=== PATIENT | female | born 1975 | race Caucasian/White ===

== ENCOUNTER 2017-03-17 17:30 | Inpatient (IN) | payer SELFPAY ==
[2017-03-17] VITALS (7 sets, daily range): BP systolic 114–129; BP diastolic 60–101
[~2017-03-17] VITALS: Ht 175.3 cm; Wt 101.7 kg
--- NOTE | ~2017-03-17 | PR ---
[place], [place] PROGRESS NOTE NAME: [id number] UNIT #: [id number] ROOM: 416 DOCTOR: SHIRLEY ESTRADA MD,MAXINE BIRTHDATE: [birth year] DOS: 03/19/2017 PULMONARY PROGRESS NOTE SUBJECTIVE: She has been still not feeling well, continue antibiotics previously as Levaquin. She has been noted with coughing with increased chest congestion and complaining of tightness in the chest. Denies any symptoms of nausea, vomiting, diarrhea or any abdominal pain. OBJECTIVE: VITAL SIGNS: For the patient which were recorded showed the temperature of the patient noted as normal. The respiratory rate of the patient recorded as 20, heart rate of 99, blood pressure 160/64. HEENT: Examination shows no acute change. NECK: Supple. Head was atraumatic. CARDIOVASCULAR: S1, S2 is audible. LUNGS: The patient was noted without any wheezing or crackles at the present time. ABDOMEN: Soft, nontender. LABORATORY DATA: CBC of the patient that was done this morning showed WBC count 16.3, hemoglobin 10.5, hematocrit 37.8, platelet count 187,000. Lactic acid was noted this morning as 2.2. The INR for the patient noted as 3.3. The blood culture of the patient from 03/17/2017 showed no bacterial growth. The chest x-ray of the patient that was done this morning showed persistent infiltration in the right mid lung. IMPRESSION: 1. Acute pneumonia for the patient, which has been not noted responding to current treatment, severe coughing, acute exacerbation of bronchial asthma as well. In the chest auscultation changes, moderate decreased breath sounds are noted with expiratory wheezing without any crackles. Continue further impression. 2. Chronic mild to moderate obesity. PLAN OF TREATMENT: The patient's antibiotics will be changed to better gram-negative and gram-positive coverage. Obtain the blood culture for this patient as well. The bronchoscopy planned to be done in the morning. The risks and benefits of procedure have been discussed with the patient. The Coumadin of the patient will be discontinued at this time with mild dose of vitamin K given to reduce the INR for the patient to do the bronchoscopy safely. The Coumadin will be resumed tomorrow morning for the patient as well. Continue current dose of steroids. Other supportive therapy, plan of management as well. Usual care. Further treatment changes will be done based on the progression of the illness. [place], [place] PROGRESS NOTE NAME: SHERITA PATEL UNIT #: [id number] ROOM: [facility] DOCTOR: MAXINE ENRIQUEZ MD BIRTHDATE: [birth year] MAXINE WATSON MD CM:PRAMOD [phone] MAXINE ESTRADA MD 03/20/17120 interface
--- NOTE | ~2017-03-17 | PR ---
[place], [place] PROGRESS NOTE NAME: SHERITA PATEL UNIT #: [id number] ROOM: 416 DOCTOR: SHIRLEY ESTRADA MD,MAXINE BIRTHDATE: [birth year] DOS: 03/23/2017 SUBJECTIVE: She has been still noted with coughing, but the intensity and frequency has been gradually resolving, but not completely resolved. The patient was noted symptoms of chest pain because of the cough, which has been treated with the local pain management. OBJECTIVE: VITAL SIGNS: Normal temperature, respiratory rate 20, heart rate 90, blood pressure 146/78. The pulse oxygen saturation of the patient recorded as 98% saturation on 1 liter nasal cannula. HEENT: Chronic obesity. NECK: Supple. CARDIOVASCULAR SYSTEM: S1, S2 audible. LUNGS: Noted without any wheeze or crackles. ABDOMEN: Soft, nontender. LABORATORY DATA: INR today was noticed 2.0, which is in the therapeutic range. CBC this morning, WBC count 16.7, hemoglobin 10.8, hematocrit 33.7. Platelet count 316,000. IMPRESSION: 1. Progressive resolution of acute pneumonia as well as coughing with exacerbation of bronchial asthma as well. 2. Chronic moderate obesity. 3. History of past thromboembolism current anticoagulation noted therapeutic INR. PLAN OF TREATMENT: Consider discharge the patient in the home setting for this patient with tapering dose of prednisone, oral Zithromax the patient 500 mg p.o. daily for 10 days and short acting bronchodilators. Outpatient followup was suggested for the patient post-discharge. MAXINE WATSON MD CM:PNTRANS [id number] MAXINE ESTRADA MD 03/23/172013 interface
--- NOTE | ~2017-03-17 | CON ---
[place], [place] REPORT OF CONSULTATION NAME: SHERITA PATEL UNIT #: [id number] ROOM: 416 DOCTOR: SHIRLEY ESTRADA MDMAXINE BIRTHDATE: [birth year] DOS: 03/18/2017 PULMONARY CONSULTATION EVALUATION MANAGEMENT REASON FOR CONSULTATION: For assessment of current abnormal ongoing respiratory symptoms, possible pneumonia and other issues. HISTORY OF PRESENT ILLNESS: This is a 41-year-old white female who has been known to me from her previous hospitalization. The patient was admitted in this hospital and treated because of acute hypoxic respiratory failure with exacerbation of bronchial asthma as well. The patient remained in the hospital from 12/03/2016 and discharged on 12/13/2016. The patient stated that she has been noted with symptoms of sore throat over the last week. The sore throat for the patient has been noted with significant worsening. She was seen in the Emergency Room of [facility]. Prescribed some medications, but the symptoms have not resolved, noted with further worsening. Later on, she was noted with coughing, which is noted progressive with excessive chest congestion. She was also noticed with symptoms of shortness breath. There were no symptoms of hemoptysis. She was complaining of fatigue, tiredness and weakness. The patient came into the Emergency Room and required hospitalization in this hospital, treated for presumable pneumonia and other issues. REVIEW OF SYSTEMS: CONSTITUTIONAL SYMPTOMS: She does have symptoms of fatigue and tiredness with possible fever, but there were no chills. EYES: Denies any burning, redness, or tenderness. EAR, NOSE, THROAT: Sore throat of the patient has been resolving, but not completely gone. She denies any symptoms of epistaxis as well. CARDIOVASCULAR: Denies anginal pain, edema or pain of the lower extremities. GASTROINTESTINAL: Denies dysphagia, nausea, vomiting, diarrhea, abdominal pain, hematemesis, melena, or hematochezia. MUSCULOSKELETAL: Denies acute joint pain, redness, or tenderness. SKIN: Denies any lesions or rashes. GENITOURINARY: Denies dysuria, suprapubic pain, or hematuria. CENTRAL NERVOUS SYSTEM: Denies dizziness, headache, diplopia or seizures. Remaining systems for this patient were noted to be unremarkable. PAST MEDICAL HISTORY: Noted with: 1. History of uncomplicated bronchial asthma. 2. Past history of pneumonia, treated in 11/2016. 3. Acute respiratory failure of the patient, noted progressive requiring intubation and mechanical ventilation in 11/2016. 4. Severe muscular weakness of the patient secondary to acute critical illness, resolved markedly. 5. History of depression. 6. Irritable bowel syndrome. 7. Migrainous headache. 8. Past history of pulmonary embolism. [place], [place] REPORT OF CONSULTATION NAME: SHERITA PATEL UNIT #: [id number] ROOM: [facility] DOCTOR: MAXINE ENRIQUEZ MD BIRTHDATE: [birth year] PAST SURGICAL HISTORY: 1. Cholecystectomy. 2. Hysterectomy. SOCIAL HISTORY: The patient denies any history of alcohol use or any tobacco use at this time. She has smoked cigarettes in the past. FAMILY HISTORY: Reported for renal failure. MEDICATIONS: Current administered medications noted use of: 1. Coumadin 6 mg p.o. daily. 2. Vitamin D 1000 international units daily. 3. Solu-Medrol 40 mg every 8 hours. 4. Tessalon Perles 200 mg t.i.d. p.r.n. for cough. 5. Mucinex 1200 mg p.o. b.i.d. 6. DuoNeb for this patient every 4 hours. 7. Levaquin 750 mg IV daily. Other p.r.n. medication for symptoms of the patient were also noted in progress. DRUG ALLERGY HISTORY: Reported as allergy to: 1. PENICILLIN. 2. IVP DYE. 3. IBUPROFEN. PHYSICAL EXAMINATION: GENERAL: A 41-year-old female who has been currently resting comfortably on the bed without any distress. Height of 5 feet 9 inches, weight of 224 pounds, BMI 33.1. VITAL SIGNS: Normal temperature, respiratory rate of 20-22, heart rate of 95-128, blood pressure 122/101-112/55. Intake for the patient is 2800 mL, output 700 mL, pulse oxygen saturation on room air 97% saturation. HEENT: Mild to moderate obesity. Head was atraumatic. Eyes nonicterus. NECK: Supple. CARDIOVASCULAR: S1, S2 is audible. LUNGS: The patient was noted without any wheezing or crackles at the present time. Breath sounds are noted mild to moderately decreased bilaterally. ABDOMEN: Bowel sounds are present. Mild to moderate obesity was noted. EXTREMITIES: Show no edema, clubbing, cyanosis. CENTRAL NERVOUS SYSTEM: Cranial nerves 2-12 intact. MUSCULOSKELETAL: No deformities. SKIN: Showed no lesions or rashes. LABORATORY DATA: CBC of patient 03/17/2017, WBC count 18.5, hemoglobin and hematocrit were normal. Platelet count was normal on admission yesterday. Lactic acid 4.1 on admission, subsequent lactic acid noted decreased to 3.1 for this patient yesterday. CMP of the patient that was done yesterday showed BUN 17, creatinine was 1.05, glucose 127. Remaining CMP was normal. PT/INR for the patient yesterday was done was noted therapeutic at 2.6. CK and MB, troponin of the patient yesterday and this morning were normal. CBC this morning, WBC count [place], [place] REPORT OF CONSULTATION NAME: SHERITA PATEL UNIT #: [id number] ROOM: [facility] DOCTOR: SHIRLEY ESTRADA MD,[facility] BIRTHDATE: [birth year] 13.3, hemoglobin 11, hematocrit 33.7, platelet count 296,000. INR for patient noted 2.6, which is therapeutic as well. CMP this morning, BUN and creatinine was normal. The chest x-ray of the patient, 2-view, which was done yesterday was personally reviewed, shows questionable infiltration was noted in the right mid lung for the patient and the left lung base. There was no large consolidation visible. IMPRESSION: 1. The patient who has been currently admitted to the hospital, appears to have acute exacerbation of bronchial asthma associated possible infection in the lungs for the patient with bilateral small pneumonia cannot be completely excluded. Etiology could be considered viral in nature and/or bacterial as well. 2. History of chronic anticoagulation with history of bilateral pulmonary embolism as well. 3. Chronic mild to moderate obesity as well. PLAN OF TREATMENT: The patient's dose of the Solu-Medrol which has been given at high dose will be decreased to 60 mg b.i.d. today with further reduction done for the patient based on the improvement in the symptoms. The sputum for Gram stain culture has been ordered for this patient as well. A new chest x-ray will be obtained for the patient in the morning to reassess the current progression of the pulmonary infiltration. Continuation of the bronchodilators administration for the patient as well. Further treatment therapy, plan of management as well. Usual care. Monitor respiratory status of the patient closely. Further changes to be ordered and done for the patient based on the progression of the current illness. Continue anticoagulation for patient to maintain therapeutic INR. MAXINE WATSON MD CM:CONSTR:REPORT OF CONSULTATION 1245 03/19/17 0546 interface
--- NOTE | ~2017-03-17 | PR ---
[place], [place] PROGRESS NOTE NAME: SHERITA PATEL UNIT #: [id number] ROOM: 416 DOCTOR: SHIRLEY ESTRADA MD,MAXINE BIRTHDATE: [birth year] DOS: 03/20/2017 SUBJECTIVE: She has been still noted with severe coughing, noted generalized weakness and fatigue. Denies symptoms of chest pain. She has been noted n.p.o. past midnight for bronchoscopy. Small dose of oral vitamin K for this patient was given yesterday to have the bronchoscopy done. The patient's INR was noticed as 1.6 this morning. OBJECTIVE: VITAL SIGNS: For the patient, which was recorded showed the temperature noted normal, respiratory rate 18, heart rate 75, blood pressure 113/60-138/86. The pulse oxygen saturation of the patient on 2 liters nasal cannula 98% saturation. HEENT: Chronic obesity. NECK: Supple. CARDIOVASCULAR: S1, S2 audible. LUNGS: Moderately reduced breath sounds noted in the lungs bilaterally with scattered expiratory crackles and wheezing. ABDOMEN: Soft, nontender, and obese. LABORATORY DATA: INR today was noted at 1.6. CBC this morning, WBC count 11.8, hemoglobin 10.5, hematocrit 32.7, platelet count of 281,000. IMPRESSION: The patient with ongoing acute pneumonia for this patient, which is being currently treated with broad-spectrum intravenous antibiotics empirically with severe coughing, exacerbation of bronchial asthma, was also suspected. for bronchoscopy. PLAN OF TREATMENT: Proceed with the bronchoscopy for the patient at this time. No major changes in treatment will be necessary. Any modification of treatment or change of treatment for the patient will be ordered after the bronchoscopy assessment of the airways. Usual plan of treatment and other therapies. MAXINE WATSON MD CM:PNTRANS [id number] MAXINE ESTRADA MD 03/21/17 0609 interface
--- NOTE | ~2017-03-17 | PROC NOTE ---
[place], [place] PROCEDURE NOTE NAME: SHERITA PATEL UNIT #: [id number] ROOM: 416 DOCTOR: SHIRLEY ESTRADA MD,MAXINE BIRTHDATE: [birth year] DOS: 03/20/2017 PREOPERATIVE DIAGNOSES: Persistent severe cough with pulmonary infiltration, nonresolving with current maximum medical therapy. POSTOPERATIVE DIAGNOSES: Severe tracheobronchitis of the patient and rule out pneumonia. PROCEDURE DESCRIPTION: Informed consent obtained for the patient. The patient brought to the OR and placed in supine position. Conscious sedation administered by the Anesthesia Department. After achieving appropriate sedation, airway introduced into the mouth. Bronchoscope advanced into the airway into laryngeal area. Epiglottis and vocal cords were seen. Vocal cord noted yellowish in color, moving symmetrically with movements. A 2% lidocaine mixed with 20 mL of saline, total of 10 mL of lidocaine was sprayed over the vocal cord partially in the tracheal lumen, right and left main stem bronchi to reduce excessive severe coughing. The vocal cord noted yellowish in color. Bronchoscope advanced to the vocal cord and tracheal lumen. Tracheal lumen shows small amount of secretions suctioned out. Marie noted sharp. Right upper, right middle, right lower, left upper, lingula, and lower lobe bronchi were all examined. Scattered amount of secretions present, small amount for the patient with findings acute tracheobronchitis noted. The bronchial washing was taken from the endobronchial tree bilaterally, sent for the appropriate cultures. Procedure well tolerated by the patient without any difficulty. Postoperative findings were rather partially discussed with the patient after completion of the procedure. No family members available at this time to discuss the current findings. MAXINE WATSON MD CM:PROCNOTE:PROCEDURE NOTE [id number] MAXINE ESTRADA MD
--- NOTE | ~2017-03-17 | PR ---
[place], [place] PROGRESS NOTE NAME: SHERITA PATEL UNIT #: [id number] ROOM: 416 DOCTOR: MAXINE ENRIQUEZ MD BIRTHDATE: [birth year] DOS: 03/21/2017 PULMONARY FOLLOWUP NOTE SUBJECTIVE: She has a bronchoscopy done yesterday with reduction of the respiratory complaints were noted. She was continued with antibiotics for the patient's vancomycin as well as IV Azactam. The patient was resumed her anticoagulation yesterday as well as after the bronchoscopy. Denies symptoms of acute chest pain. OBJECTIVE: VITAL SIGNS: For the patient which were recorded showed normal temperature, respiratory rate 20, heart rate 90, blood pressure 108/54. The pulse oxygen saturation for the patient recorded as 92% saturation on nasal cannula. HEENT: Examination showed no acute change. NECK: Supple. CARDIOVASCULAR SYSTEM: S1, S2 audible. LUNGS: The patient was noted without any wheeze or crackles at the present time. ABDOMEN: Soft, nontender. LABORATORY DATA: The Gram stain of the bronchial washing shows moderate white blood cells, few gram-positive cocci in pairs and budding yeast. The BMP of the patient this morning, glucose 137, BUN and creatinine was normal. CBC this morning, WBC count 13.4, hemoglobin 10.8, hematocrit 33.9 with platelet count 182,000. IMPRESSION: 1. Severe acute tracheobronchitis with exacerbation of bronchial asthma as well. 2. Acute pneumonia for the patient was also noted as well in the right lower lobe. PLAN OF TREATMENT: Obtain the chest x-ray of the patient this morning to reassess the pneumonia progression. Monitor culture results. No changes in the antibiotics of the patient at this time will be necessary. Any treatment changes for the patient if necessary will be done after the final culture results of the bronchial washings. Dose of Solu-Medrol for the patient will be kept as previously. [place], [place] PROGRESS NOTE NAME: SHERITA PATEL UNIT #: [id number] ROOM: 416 DOCTOR: MAXINE ENRIQUEZ MD BIRTHDATE: [birth year] MAXINE WATSON MD CM:PNTRANS [id number] MAXINE ESTRADA MD 03/22/17 0439 interface
--- NOTE | ~2017-03-17 | PR ---
[place], [place] PROGRESS NOTE NAME: SHERITA PATEL UNIT #: [id number] ROOM: 416 DOCTOR: MAXINE ENRIQUEZ MD BIRTHDATE: [birth year] DOS: 03/22/2017 PULMONARY PROGRESS NOTE SUBJECTIVE: The coughing of the patient has been still noted nonproductive, gradual reduction. Shortness of breath of the patient has been noted to be decreasing. Wheezing was resolved. OBJECTIVE: VITAL SIGNS: Normal temperature, respiratory rate 18, heart rate 76, blood pressure 108/78. Pulse oxygen saturation of the patient recorded on 2 liters via nasal cannula 93% saturation. HEENT: Head was atraumatic. Eyes nonicterus. NECK: Supple. CARDIOVASCULAR SYSTEM: S1, S2 audible. LUNGS: The patient was noted without any crackles. Scattered occasional wheezing was present. ABDOMEN: Soft, nontender. LABORATORY DATA: Culture of the bronchial washing was noted normal brian. CMP this morning noted normal BUN and creatinine. Chest x-ray, 2-view, which was done this morning shows improvement in the aeration of the lungs for the patient noted resolving acute pneumonia. IMPRESSION: The patient who has been currently noted with acute exacerbation of bronchial asthma with acute tracheobronchitis as well as acute pneumonia, right lower lobe for this patient. Severe cough for this patient, irritability of airway was still noted. PLAN OF TREATMENT: The patient will be continued on bronchodilators, oxygen supplementation and the other medical management except changes will be made in the medications as resuming the patient's Zithromax for the patient orally 500 mg daily and the use of the IV Rocephin, all the other antibiotics will be discontinued based on the culture results. [place], [place] PROGRESS NOTE NAME: SHERITA PATEL UNIT #: [id number] ROOM: 416 DOCTOR: MAXINE ENRIQUEZ MD BIRTHDATE: [birth year] MAXINE WATSON MD CM:PNTRANS [phone] MAXINE ESTRADA MD 03/22/174 interface
[~2017-03-17 17:30] MED LIST: ALBUTEROL0.09 MG/A2 INH; ALBUTEROL2.5 MG/0.5 NEB; ARNUITY EL200 MCG/Ac INH; BENADRYL25 MG PO; BENZONATATE100 M1 PO; CLARITIN10 MG PO; Coumadin5 MG PO; D-1000 185 MG-11 TAB NG; DOXYCYCLINE100 M3 PO; DUONEB 3 MG/3 ML3 M1 PO; EPI EZ PEN1 MG/ML IM; EPI-PEN1 MG/ML MR; EPIPEN 2-PAK1 MG/ML MR; LASIX40 MG PO; LEVAQUIN750 MG PO; LEVOFLOXACIN500 MG PO; MEDROL DOSEPAK4 MG PO; NABUMETONE500 M1 PO; PREDNICOT20 MG PO; PREDNISONE10 MG PO; PREDNISONE20 MG PO; PROTONIX20 MG PO; PROTONIX40 MG PO; ROBITUSSIN5 ML PO; SPIRIVA18 MCG INH; VISTARIL25 MG PO; ZANTAC150 MG; ZOLOFT50 MG PO
[2017-03-17 18:18] LABS: BASO % 0.1 % (0.0-1.0); HEMATOCRIT 38.8 % (37.0-47.0); HEMOGLOBIN 12.7 g/dl (12.0-16.0); IG # 0.1 10*3/uL (0.0-0.1); LYMPH # 2.3 10*3/uL (1.3-4.4); LYMPH % 12.4 % (27.0-41.0); MEAN CORPUSCULAR HGB 28.2 pg (27.0-31.0); MEAN CORPUSCULAR HGB CONC 32.7 g/dl (33.0-37.0); MEAN PLATELET VOLUME 10.2 fl (9.6-12.3); MONO # 0.5 10*3/uL (0.1-1.0); MONO % 2.5 % (3.0-9.0); NEUT # 15.7 10*3/uL (2.3-7.9); NEUT % 84.4 % (47.0-73.0); PLATELET COUNT AUTOMATED 364 10*3/uL (130-400); RED BLOOD COUNT 4.51 10*6/uL (4.10-5.10); RED CELL DISTRI WIDTH 13.8 % (0-14.5); WHITE BLOOD COUNT 18.5 10*3/uL (4.8-10.8)
[2017-03-17 18:35] LABS: ALBUMIN 3.7 gm/dl (3.1-4.5); ALKALINE PHOSPHATASE 96 U/L (45-117); BILIRUBIN, TOTAL 0.3 mg/dl (0.2-1.0); BUN 7 mg/dl (7-24); CARBON DIOXIDE 23 mmol/L (21-32); CHLORIDE 109 mmol/L (98-107); EST GLOM FILT AFRICAN AMERICAN > 60 ml/min; GLUCOSE 127 mg/dL (65-99); POTASSIUM 4.1 mmol/L (3.5-5.1); SGOT/AST 27 IU/L (3-35); SGPT/ALT 29 U/L (12-78); SODIUM 143 mmol/L (136-145); TOTAL PROTEIN 7.9 gm/dL (6.4-8.2)
[2017-03-17 18:39] LABS: TROPONIN I < 0.015 ng/ml (<0.045)
[2017-03-17 20:14] LABS: LA>2 REFLEX 2 HR DRAW NOW
[2017-03-17 20:32] LABS: LA>2 RFLX FOLLOW UP AT 2 HRS 3.9 mmol/L (0.4-2.0)
[2017-03-17] MEDS ORDERED: COUMADIN6 M2 PO (21:54)
[2017-03-17] MEDS ORDERED: DUONEB 3 MG/3 ML3 M1 INH (21:55)
[2017-03-17] MEDS ORDERED: VENTOLIN H0.09 MG/AC INH (21:56)
[2017-03-17 22:22] LABS: LA>2 REFLEX 4 HR DRAW NOW
[2017-03-17 23:13] LABS: INTERNATIONAL NORM RATIO 2.6 (2.0-3.5); PROTHROMBIN TIME 28.8 SECONDS (9.0-12.4)
[2017-03-18] VITALS: BP 112/55
[2017-03-18 00:48] LABS: BILIRUBIN NEGATIVE (NEGATIVE); BLOOD NEGATIVE (NEGATIVE); CLARITY CLEAR (CLEAR); COLOR YELLOW (YELLOW); GLUCOSE NEGATIVE (NEGATIVE); KETONE NEGATIVE (NEGATIVE); LEUKO ESTERASE NEGATIVE (NEGATIVE); NITRITE NEGATIVE (NEGATIVE); PROTEIN NEGATIVE (NEGATIVE); SPECIFIC GRAVITY <= 1.005 (1.005-1.030); UROBILINOGEN 0.2 E.U./dl (0.2-1.0)
[2017-03-18 00:52] LABS: CKMB 1.2 ng/ml (0.5-3.6); CPK 143 U/L (26-192); TROPONIN I < 0.015 ng/ml (<0.045)
[2017-03-18 01:38] LABS: BACTERIA TRACE; EPITHELIAL CELLS 30-35; URINE REFLEX COMMENT NO (NO); WBC 0-2 wbc/hpf (0-5)
[2017-03-18 06:21] LABS: BASO % 0.1 % (0.0-1.0); HEMATOCRIT 33.7 % (37.0-47.0); IG # 0.1 10*3/uL (0.0-0.1); LYMPH # 1.3 10*3/uL (1.3-4.4); MEAN CELL VOLUME 87.1 fl (81.0-99.0); MEAN CORPUSCULAR HGB 28.4 pg (27.0-31.0); MEAN CORPUSCULAR HGB CONC 32.6 g/dl (33.0-37.0); MEAN PLATELET VOLUME 10.1 fl (9.6-12.3); MONO # 0.2 10*3/uL (0.1-1.0); MONO % 1.4 % (3.0-9.0); NEUT # 11.7 10*3/uL (2.3-7.9); NEUT % 87.9 % (47.0-73.0); PLATELET COUNT AUTOMATED 296 10*3/uL (130-400); RED BLOOD COUNT 3.87 10*6/uL (4.10-5.10); WHITE BLOOD COUNT 13.3 10*3/uL (4.8-10.8)
[2017-03-18 06:27] LABS: CKMB 1.3 ng/ml (0.5-3.6); CPK 116 U/L (26-192)
[2017-03-18 06:50] LABS: ALBUMIN 3.1 gm/dl (3.1-4.5); ALKALINE PHOSPHATASE 78 U/L (45-117); BILIRUBIN, TOTAL 0.3 mg/dl (0.2-1.0); BUN 9 mg/dl (7-24); CARBON DIOXIDE 25 mmol/L (21-32); CHLORIDE 109 mmol/L (98-107); CHOLESTEROL 186 mg/dL (<200); EST GLOM FILT AFRICAN AMERICAN > 60 ml/min; FREE T4 1.09 ng/dl (0.76-1.46); GLUCOSE 128 mg/dL (65-99); HDL CHOLESTEROL 58 mg/dl (40-60); LDL CHOLESTEROL 106 mg/dL (9-159); MAGNESIUM 2.5 mg/dL (1.5-2.1); PHOSPHOROUS 3.3 mg/dL (2.5-4.9); POTASSIUM 3.9 mmol/L (3.5-5.1); SGOT/AST 14 IU/L (3-35); SGPT/ALT 24 U/L (12-78); SODIUM 143 mmol/L (136-145); TOTAL PROTEIN 6.7 gm/dL (6.4-8.2); TRIGLYCERIDES 110 mg/dl (<150); VLDL CHOLESTEROL 22 mg/dL (6-40)
[2017-03-18 06:54] LABS: THYROID STIM HORMONE (HS) 0.125 uIU/ml (0.358-4.75)
[2017-03-18 07:01] LABS: INTERNATIONAL NORM RATIO 2.6 (2.0-3.5); PROTHROMBIN TIME 29.6 SECONDS (9.0-12.4)
[2017-03-18 07:03] LABS: TROPONIN I < 0.015 ng/ml (<0.045)
[2017-03-18 07:32] LABS: HEMOGLOBIN A1c 5.8 % (4.8-5.6)
[2017-03-18 08:00] VITALS: BP 113/56
[2017-03-18 09:14] LABS: VITAMIN D, 25-HYDROXY 26.4 ng/mL (30-100)
[2017-03-18 09:15] LABS: FOLIC ACID 5.7 ng/mL (>5.38)
[2017-03-18 12:00] VITALS: BP 126/66
[2017-03-18 16:00] VITALS: BP 106/61
[2017-03-18 20:00] VITALS: BP 123/75
[2017-03-19] VITALS: BP 98/75
[2017-03-19 06:12] LABS: BASO % 0.1 % (0.0-1.0); HEMATOCRIT 32.8 % (37.0-47.0); HEMOGLOBIN 10.5 g/dl (12.0-16.0); IG # 0.2 10*3/uL (0.0-0.1); LYMPH # 1.5 10*3/uL (1.3-4.4); MEAN CELL VOLUME 87.9 fl (81.0-99.0); MEAN CORPUSCULAR HGB 28.2 pg (27.0-31.0); MEAN PLATELET VOLUME 10.1 fl (9.6-12.3); MONO # 0.5 10*3/uL (0.1-1.0); MONO % 3.1 % (3.0-9.0); NEUT # 14.1 10*3/uL (2.3-7.9); NEUT % 86.8 % (47.0-73.0); PLATELET COUNT AUTOMATED 287 10*3/uL (130-400); RED BLOOD COUNT 3.73 10*6/uL (4.10-5.10); RED CELL DISTRI WIDTH 14.1 % (0-14.5); WHITE BLOOD COUNT 16.3 10*3/uL (4.8-10.8)
[2017-03-19 06:30] LABS: INTERNATIONAL NORM RATIO 3.1 (2.0-3.5); PROTHROMBIN TIME 35.9 SECONDS (9.0-12.4)
[2017-03-19 07:54] LABS: LA>2 REFLEX 2 HR DRAW NOW
[2017-03-19 08:00] VITALS: BP 116/64
[2017-03-19 10:12] LABS: LA>2 REFLEX 4 HR DRAW NOW
[2017-03-19 12:00] VITALS: BP 109/54
[2017-03-19 16:00] VITALS: BP 107/73
[2017-03-19 20:00] VITALS: BP 109/78
[2017-03-20] VITALS (9 sets, daily range): BP systolic 91–138; BP diastolic 52–86
[2017-03-20 06:44] LABS: INTERNATIONAL NORM RATIO 1.6 (2.0-3.5); PROTHROMBIN TIME 17.4 SECONDS (9.0-12.4)
[2017-03-20 06:51] LABS: BASO % 0.1 % (0.0-1.0); HEMATOCRIT 32.7 % (37.0-47.0); HEMOGLOBIN 10.5 g/dl (12.0-16.0); IG # 0.2 10*3/uL (0.0-0.1); LYMPH # 1.4 10*3/uL (1.3-4.4); LYMPH % 11.9 % (27.0-41.0); MEAN CELL VOLUME 88.6 fl (81.0-99.0); MEAN CORPUSCULAR HGB 28.5 pg (27.0-31.0); MEAN CORPUSCULAR HGB CONC 32.1 g/dl (33.0-37.0); MEAN PLATELET VOLUME 9.9 fl (9.6-12.3); MONO # 0.4 10*3/uL (0.1-1.0); MONO % 3.5 % (3.0-9.0); NEUT # 9.8 10*3/uL (2.3-7.9); NEUT % 82.9 % (47.0-73.0); PLATELET COUNT AUTOMATED 281 10*3/uL (130-400); RED BLOOD COUNT 3.69 10*6/uL (4.10-5.10); RED CELL DISTRI WIDTH 13.9 % (0-14.5); WHITE BLOOD COUNT 11.8 10*3/uL (4.8-10.8)
[2017-03-21] VITALS: BP 104/57
[2017-03-21 00:09] LABS: INFLUENZA B Negative (Negative); METAPNEUMOVIRUS Negative (Negative)
[2017-03-21 06:07] LABS: BASO % 0.1 % (0.0-1.0); HEMATOCRIT 33.9 % (37.0-47.0); HEMOGLOBIN 10.8 g/dl (12.0-16.0); IG # 0.3 10*3/uL (0.0-0.1); LYMPH # 1.6 10*3/uL (1.3-4.4); LYMPH % 11.6 % (27.0-41.0); MEAN CELL VOLUME 89.7 fl (81.0-99.0); MEAN CORPUSCULAR HGB 28.6 pg (27.0-31.0); MEAN CORPUSCULAR HGB CONC 31.9 g/dl (33.0-37.0); MEAN PLATELET VOLUME 9.8 fl (9.6-12.3); MONO # 0.5 10*3/uL (0.1-1.0); MONO % 3.9 % (3.0-9.0); NEUT % 82.2 % (47.0-73.0); NUCLEATED RED BLOOD CELL 0.1 % (0.0-0.0); PLATELET COUNT AUTOMATED 302 10*3/uL (130-400); RED BLOOD COUNT 3.78 10*6/uL (4.10-5.10); RED CELL DISTRI WIDTH 13.9 % (0-14.5); WHITE BLOOD COUNT 13.4 10*3/uL (4.8-10.8)
[2017-03-21 06:24] LABS: BUN 14 mg/dl (7-24); CARBON DIOXIDE 30 mmol/L (21-32); CHLORIDE 109 mmol/L (98-107); EST GLOM FILT AFRICAN AMERICAN > 60 ml/min; GLUCOSE 137 mg/dL (65-99); POTASSIUM 3.7 mmol/L (3.5-5.1); SODIUM 144 mmol/L (136-145)
[2017-03-21 08:00] VITALS: BP 122/64
[2017-03-21 12:00] VITALS: BP 108/54
[2017-03-21 14:00] VITALS: BP 108/54
[2017-03-21 15:07] LABS: ACID FAST SPEC PROCESSING Concentration (.)
[2017-03-21 16:00] VITALS: BP 108/72
[2017-03-21 20:00] VITALS: BP 129/70
[2017-03-22] VITALS: BP 124/70
[2017-03-22 06:32] LABS: ALBUMIN 2.4 gm/dl (3.1-4.5); ALKALINE PHOSPHATASE 66 U/L (45-117); BILIRUBIN, TOTAL 0.2 mg/dl (0.2-1.0); BUN 17 mg/dl (7-24); CARBON DIOXIDE 24 mmol/L (21-32); CHLORIDE 109 mmol/L (98-107); EST GLOM FILT AFRICAN AMERICAN > 60 ml/min; GLUCOSE 122 mg/dL (65-99); POTASSIUM 3.9 mmol/L (3.5-5.1); SGOT/AST 16 IU/L (3-35); SGPT/ALT 31 U/L (12-78); SODIUM 145 mmol/L (136-145); TOTAL PROTEIN 5.5 gm/dL (6.4-8.2)
[2017-03-22 07:00] LABS: INTERNATIONAL NORM RATIO 1.7 (2.0-3.5); PROTHROMBIN TIME 18.2 SECONDS (9.0-12.4)
[2017-03-22 08:00] VITALS: BP 108/78
[2017-03-22 12:00] VITALS: BP 118/62
[2017-03-22 16:00] VITALS: BP 130/62
[2017-03-22 20:00] VITALS: BP 120/85
[2017-03-23] VITALS: BP 110/60
[2017-03-23 06:43] LABS: HEMATOCRIT 33.7 % (37.0-47.0); HEMOGLOBIN 10.8 g/dl (12.0-16.0); MEAN CELL VOLUME 87.8 fl (81.0-99.0); MEAN CORPUSCULAR HGB 28.1 pg (27.0-31.0); MEAN PLATELET VOLUME 9.7 fl (9.6-12.3); PLATELET COUNT AUTOMATED 316 10*3/uL (130-400); RED BLOOD COUNT 3.84 10*6/uL (4.10-5.10); RED CELL DISTRI WIDTH 13.7 % (0-14.5); WHITE BLOOD COUNT 16.7 10*3/uL (4.8-10.8)
[2017-03-23 07:12] LABS: LYMPHOCYTE # 2.2 10*3/uL (1.3-4.4); METAMYELOCYTES 2 % (0-0); MONOCYTE # 0.5 10*3/uL (0.1-1.0); NEUTROPHIL # 13.7 10*3/uL (2.3-7.9); NEUTROPHILS 82 % (47-73); PLATELET SUFFICIENCY NORMAL (NORMAL); TOTAL CELLS COUNTED 100 #CELLS
[2017-03-23 07:14] LABS: PROTHROMBIN TIME 21.7 SECONDS (9.0-12.4)
[2017-03-23 07:17] LABS: CHLORIDE 106 mmol/L (98-107); POTASSIUM 3.3 mmol/L (3.5-5.1); SODIUM 145 mmol/L (136-145)
[2017-03-23 07:25] LABS: ALBUMIN 2.4 gm/dl (3.1-4.5); ALKALINE PHOSPHATASE 66 U/L (45-117); BILIRUBIN, TOTAL 0.2 mg/dl (0.2-1.0); BUN 17 mg/dl (7-24); CARBON DIOXIDE 30 mmol/L (21-32); EST GLOM FILT AFRICAN AMERICAN > 60 ml/min; GLUCOSE 119 mg/dL (65-99); SGOT/AST 22 IU/L (3-35); SGPT/ALT 44 U/L (12-78); TOTAL PROTEIN 5.4 gm/dL (6.4-8.2)
[2017-03-23 08:00] VITALS: BP 146/78
[2017-03-23] MEDS ORDERED: VENTOLIN H0.09 MG/AC INH (11:56)
[2017-03-23] MEDS ORDERED: AZITHROMYCIN500 M2 PO (11:56)
[2017-03-23] MEDS ORDERED: PREDNISONE10 MG PO (11:56)
[2017-03-23] MEDS ORDERED: Clotrimazole Tr10 MG PO (11:56)
[2017-03-23 12:00] VITALS: BP 122/60
== END 2017-03-23 14:08 | disposition home or self-care (01) | DRG 871 ==
LOC: ED 17:30 → 4E 19:43 → EDHOLD 19:43 → 4E 20:23
PROVIDERS: Hospitalist; Internal Medicine; Internal Medicine Critical Care Medicine; Internal Medicine Hospice and Palliative Medicine; Nurse Practitioner Family
DX: A41.9 Sepsis, unspecified organism (principal); J18.9 Pneumonia, unspecified organism; J96.00 Acute respiratory failure, unspecified whether with hypoxia or hypercapnia; E43 Unspecified severe protein-calorie malnutrition; B37.81 Candidal esophagitis; F33.9 Major depressive disorder, recurrent, unspecified; D68.59 Other primary thrombophilia; B37.0 Candidal stomatitis; J45.901 Unspecified asthma with (acute) exacerbation; R65.20 Severe sepsis without septic shock; F17.200 Nicotine dependence, unspecified, uncomplicated; G43.909 Migraine, unspecified, not intractable, without status migrainosus; E66.09 Other obesity due to excess calories; T38.0X5A Adverse effect of glucocorticoids and synthetic analogues, initial encounter; E87.6 Hypokalemia; E83.41 Hypermagnesemia; D64.9 Anemia, unspecified; R73.9 Hyperglycemia, unspecified; K58.9 Irritable bowel syndrome, unspecified; Z90.49 Acquired absence of other specified parts of digestive tract; Z90.710 Acquired absence of both cervix and uterus; Z84.1 Family history of disorders of kidney and ureter; Y92.89 Other specified places as the place of occurrence of the external cause; Z79.01 Long term (current) use of anticoagulants; Z71.6 Tobacco abuse counseling; Z88.0 Allergy status to penicillin; Z88.6 Allergy status to analgesic agent; Z91.030 Bee allergy status; Z91.041 Radiographic dye allergy status; Z79.51 Long term (current) use of inhaled steroids; Z79.899 Other long term (current) drug therapy; Z68.33 Body mass index [BMI] 33.0-33.9, adult

== ENCOUNTER 2017-04-15 11:52 | Inpatient (IN) | payer SELFPAY ==
[~2017-04-15] VITALS: Ht 175 cm; Wt 102.0 kg
[~2017-04-15 11:52] MED LIST changes: +AZITHROMYCIN500 M2 PO; +COUMADIN6 M2 PO; +Clotrimazole Tr10 MG PO; +DUONEB 3 MG/3 ML3 M1 INH; +VENTOLIN H0.09 MG/AC INH
[2017-04-15 12:02] VITALS: BP 140/93
[2017-04-15 12:57] LABS: BASO % 0.4 % (0.0-1.0); EOS # 0.3 10*3/uL (0.0-0.4); HEMATOCRIT 39.2 % (37.0-47.0); HEMOGLOBIN 13.2 g/dl (12.0-16.0); LYMPH # 2.9 10*3/uL (1.3-4.4); LYMPH % 42.5 % (27.0-41.0); MEAN CELL VOLUME 83.8 fl (81.0-99.0); MEAN CORPUSCULAR HGB 28.2 pg (27.0-31.0); MEAN CORPUSCULAR HGB CONC 33.7 g/dl (33.0-37.0); MEAN PLATELET VOLUME 9.2 fl (9.6-12.3); MONO # 0.5 10*3/uL (0.1-1.0); MONO % 7.1 % (3.0-9.0); NEUT # 3.1 10*3/uL (2.3-7.9); NEUT % 45.7 % (47.0-73.0); PLATELET COUNT AUTOMATED 315 10*3/uL (130-400); RED BLOOD COUNT 4.68 10*6/uL (4.10-5.10); RED CELL DISTRI WIDTH 13.7 % (0-14.5); WHITE BLOOD COUNT 6.8 10*3/uL (4.8-10.8)
[2017-04-15 13:00] VITALS: BP 120/71
[2017-04-15 13:06] LABS: INTERNATIONAL NORM RATIO 2.9 (2.0-3.5); PROTHROMBIN TIME 32.8 SECONDS (9.0-12.4)
[2017-04-15 13:15] LABS: BUN 10 mg/dl (7-24); CARBON DIOXIDE 26 mmol/L (21-32); CHLORIDE 104 mmol/L (98-107); EST GLOM FILT AFRICAN AMERICAN > 60 ml/min; GLUCOSE 101 mg/dL (65-99); POTASSIUM 3.9 mmol/L (3.5-5.1); SODIUM 144 mmol/L (136-145); TROPONIN I < 0.015 ng/ml (<0.045)
[2017-04-15 14:10] VITALS: BP 124/76
[2017-04-15 15:30] VITALS: BP 119/66
[2017-04-15 16:15] VITALS: BP 128/66
[2017-04-15 16:18] LABS: CPK 59 U/L (26-192)
[2017-04-15 16:19] LABS: CKMB < 0.5 ng/ml (0.5-3.6)
[2017-04-15] MEDS ORDERED: LASIX20 MG PO (16:29)
[2017-04-15 19:20] LABS: CKMB < 0.5 ng/ml (0.5-3.6); CPK 55 U/L (26-192)
[2017-04-15 20:00] VITALS: BP 130/84
[2017-04-15 22:06] LABS: CKMB < 0.5 ng/ml (0.5-3.6); CPK 57 U/L (26-192)
[2017-04-16] VITALS: BP 110/71
[2017-04-16 04:07] VITALS: BP 114/77
[2017-04-16 06:02] LABS: BASO % 0.5 % (0.0-1.0); EOS # 0.3 10*3/uL (0.0-0.4); EOS % 4.4 % (1.0-4.0); HEMATOCRIT 39.1 % (37.0-47.0); HEMOGLOBIN 12.8 g/dl (12.0-16.0); LYMPH # 2.5 10*3/uL (1.3-4.4); LYMPH % 43.4 % (27.0-41.0); MEAN CORPUSCULAR HGB 27.8 pg (27.0-31.0); MEAN CORPUSCULAR HGB CONC 32.7 g/dl (33.0-37.0); MEAN PLATELET VOLUME 9.3 fl (9.6-12.3); MONO # 0.4 10*3/uL (0.1-1.0); MONO % 7.7 % (3.0-9.0); NEUT # 2.5 10*3/uL (2.3-7.9); NEUT % 43.7 % (47.0-73.0); PLATELET COUNT AUTOMATED 298 10*3/uL (130-400); RED CELL DISTRI WIDTH 13.9 % (0-14.5); WHITE BLOOD COUNT 5.7 10*3/uL (4.8-10.8)
[2017-04-16 06:32] LABS: PROTHROMBIN TIME 33.7 SECONDS (9.0-12.4)
[2017-04-16 06:42] LABS: BUN 11 mg/dl (7-24); CARBON DIOXIDE 27 mmol/L (21-32); CHLORIDE 102 mmol/L (98-107); CHOLESTEROL 240 mg/dL (<200); EST GLOM FILT AFRICAN AMERICAN > 60 ml/min; FREE T4 1.18 ng/dl (0.76-1.46); GLUCOSE 101 mg/dL (65-99); HDL CHOLESTEROL 49 mg/dl (40-60); LDL CHOLESTEROL 159 mg/dL (9-159); MAGNESIUM 2.4 mg/dL (1.5-2.1); PHOSPHOROUS 4.2 mg/dL (2.5-4.9); POTASSIUM 3.7 mmol/L (3.5-5.1); SODIUM 139 mmol/L (136-145); TRIGLYCERIDES 160 mg/dl (<150); VLDL CHOLESTEROL 32 mg/dL (6-40)
[2017-04-16 08:00] VITALS: BP 106/58
[2017-04-16 12:00] VITALS: BP 100/73
[2017-04-16 16:00] VITALS: BP 107/64
[2017-04-16 20:00] VITALS: BP 102/68
[2017-04-17] VITALS: BP 105/61
[2017-04-17 06:03] LABS: BASO % 0.5 % (0.0-1.0); EOS # 0.3 10*3/uL (0.0-0.4); EOS % 4.6 % (1.0-4.0); HEMATOCRIT 40.4 % (37.0-47.0); HEMOGLOBIN 13.6 g/dl (12.0-16.0); LYMPH # 2.5 10*3/uL (1.3-4.4); MEAN CELL VOLUME 85.2 fl (81.0-99.0); MEAN CORPUSCULAR HGB 28.7 pg (27.0-31.0); MEAN CORPUSCULAR HGB CONC 33.7 g/dl (33.0-37.0); MEAN PLATELET VOLUME 9.3 fl (9.6-12.3); MONO # 0.6 10*3/uL (0.1-1.0); MONO % 8.4 % (3.0-9.0); NEUT # 3.2 10*3/uL (2.3-7.9); NEUT % 48.3 % (47.0-73.0); PLATELET COUNT AUTOMATED 303 10*3/uL (130-400); RED BLOOD COUNT 4.74 10*6/uL (4.10-5.10); RED CELL DISTRI WIDTH 13.9 % (0-14.5); WHITE BLOOD COUNT 6.5 10*3/uL (4.8-10.8)
[2017-04-17 06:32] LABS: BUN 17 mg/dl (7-24); CARBON DIOXIDE 28 mmol/L (21-32); CHLORIDE 102 mmol/L (98-107); EST GLOM FILT AFRICAN AMERICAN > 60 ml/min; GLUCOSE 117 mg/dL (65-99); INTERNATIONAL NORM RATIO 2.6 (2.0-3.5); POTASSIUM 3.7 mmol/L (3.5-5.1); PROTHROMBIN TIME 28.7 SECONDS (9.0-12.4); SODIUM 143 mmol/L (136-145)
[2017-04-17 08:00] VITALS: BP 112/52
[2017-04-17 12:00] VITALS: BP 111/51
== END 2017-04-17 15:25 | disposition home or self-care (01) | DRG 313 ==
LOC: ED 11:52 → 5E 14:52 → EDHOLD 14:52 → 5E 15:12
PROVIDERS: Emergency Medicine; Hospitalist; Student in an Organized Health Care Education/Training Program
DX: R07.9 Chest pain, unspecified (principal); I50.9 Heart failure, unspecified; J44.9 Chronic obstructive pulmonary disease, unspecified; R06.01 Orthopnea; E66.9 Obesity, unspecified; J45.909 Unspecified asthma, uncomplicated; G43.909 Migraine, unspecified, not intractable, without status migrainosus; F17.210 Nicotine dependence, cigarettes, uncomplicated; K58.9 Irritable bowel syndrome, unspecified; Z88.0 Allergy status to penicillin; Z88.1 Allergy status to other antibiotic agents; Z91.030 Bee allergy status; Z91.041 Radiographic dye allergy status; Z88.5 Allergy status to narcotic agent; Z79.2 Long term (current) use of antibiotics; Z79.899 Other long term (current) drug therapy; Z84.1 Family history of disorders of kidney and ureter; Z68.33 Body mass index [BMI] 33.0-33.9, adult; Z90.49 Acquired absence of other specified parts of digestive tract; Z90.710 Acquired absence of both cervix and uterus; Z88.6 Allergy status to analgesic agent; Z79.51 Long term (current) use of inhaled steroids; Z79.01 Long term (current) use of anticoagulants

== ENCOUNTER 2017-07-06 08:23 | Inpatient (IN) | payer OTHER ==
[~2017-07-06] VITALS: Ht 175.3 cm; Wt 105.9 kg
--- NOTE | ~2017-07-06 | PR ---
[place], [place] PROGRESS NOTE NAME: SHERITA PATEL UNIT #: [id number] ROOM: 504 DOCTOR: MAXINE ENRIQUEZ MD BIRTHDATE: [birth year] DOS: 07/11/2017 SUBJECTIVE: She had a bronchoscopy done yesterday with removal of mucus plugs because of the atelectasis of the right lower lobe and also persistent cough. She has been noted with partial improvement in the symptoms of cough after that. She denies any symptoms of chest pain. Shortness of breath has been improving. Improvement in the oxygen saturation was noted post-bronchoscopy. OBJECTIVE: VITAL SIGNS: For the patient which were recorded shows normal temperature, respirations 18, heart rate 61, blood pressure 112/68 this morning. Intake is 1400 mL and output of 1653. Pulse oxygen saturation on 4 L nasal cannula was 97% saturation. HEENT: Examination shows no acute change. NECK: Supple. CARDIOVASCULAR: S1, S2 audible. LUNGS: The patient was noted without any wheeze or crackles at this time. ABDOMEN: Soft, nontender. LABORATORY DATA: CBC this morning was noted with normal WBC count and platelet count, mild anemia; otherwise, CBC was normal. Culture of the bronchial washing preliminary shows normal brian. Gram stain of the patient was reviewed and shows many white blood cells with moderate epithelial cells, few gram-positive cocci in pairs and chains. IMPRESSION: The patient with severe coughing. The patient with acute asthmatic bronchitis with atelectasis of the right lower lobe. Currently, has pending cultures of the bronchial washings. Partial improvement noted. Still noted with significant generalized debility, resolving the oxygen requirement. The patient with improvement of respiratory status and hypoxic respiratory failure as a result of atelectasis would be considered. PLAN OF TREATMENT: Continuation of bronchodilators, oxygen supplementation, and antibiotic to be changed if necessary based on the culture results. Otherwise, other previous treatment to be continued, use of flutter valve, BiPAP use, oxygen supplementation, mucolytics, all other therapies and supportive care. [place], [place] PROGRESS NOTE NAME: SHERITA PATEL UNIT #: [id number] ROOM: 504 DOCTOR: MAXINE ENRIQUEZ MD BIRTHDATE: [birth year] MAXINE WATSON MD CM:PNTRANS [phone] MAXINE ESTRADA MD 07/12/17 235 interface
--- NOTE | ~2017-07-06 | CON ---
[place], [place] REPORT OF CONSULTATION NAME: SHERITA PATEL UNIT #: [id number] ROOM: 504 DOCTOR: SHIRLEY ESTRADA MDMAXINE BIRTHDATE: [birth year] DOS: 07/07/2017 REASON FOR CONSULTATION: The patient was independently seen and examined for today's consultation. History was personally taken from the patient. The physical findings for the patient also personally confirmed. The labs were reviewed. The assessment and management was done for today's pulmonary consultation personally as well. The note which was done by the medical record librarians teacher was approved. HISTORY OF PRESENT ILLNESS: A 42-year-old white female known to me from the past, admitted to the hospital under the care of the hospitalist services. The patient developed symptoms of shortness of breath that started last week. The patient was also noted with symptoms of cough, which were noted later as progressive. The patient was also noted with loss of voice with significant hoarseness. She developed severe croupy cough, which has been noted to have worsened. The patient has been admitted to the hospital. The patient transferred to the Intensive Care Unit yesterday. The patient has been noted with coughing episodes. She walked to the bathroom. The patient was transferred to Intensive Care Unit where she has been seen. She has been ordered the BiPAP, but not used because of the coughing and anxiety. She has been noted with excessive coughing at the time of examination and she also described symptoms of wheezing with tightness in the chest. There were no symptoms of significant chest pain described. REVIEW OF SYSTEMS: Review of system for this patient has been performed by the medical record librarians teacher. The patient's past history, family history, social history, and surgical history for this patient has already been completed by the medical record librarians teacher note. PHYSICAL EXAMINATION: GENERAL: A 42-year-old female who has been currently sitting on the bed. The patient noted with excessive severe cough with croupy sounds. She was noted with very forced and able to talk, but very softly. VITAL SIGNS: Height for the patient recorded on admission as 5 feet 9 inches, weight 233 pounds, BMI 34.4. Vital signs was noted as normal temperature, respiratory rate of 26-28, heart rate 127-107 with sinus tachycardia, blood pressure 140/86-145/83. Pulse oxygen saturation of the patient was noted on 4 L nasal cannula 91-93% saturation. HEENT: Head was atraumatic. Eyes nonicterus. NECK: Supple. CARDIOVASCULAR: S1, S2 audible. LUNGS: Noted without any crackles. Moderately reduced breath sound, diffuse expiratory wheezing. ABDOMEN: Soft, nontender, bowel sounds present. It was moderately obese. EXTREMITIES: Shows chronic obesity. There was no edema, clubbing or cyanosis. MUSCULOSKELETAL: No deformities. SKIN: Showed no lesions or rashes. [place], [place] REPORT OF CONSULTATION NAME: SHERITA PATEL UNIT #: [id number] ROOM: [facility] DOCTOR: SHIRLEY ESTRADA MD,[facility] BIRTHDATE: [birth year] LABORATORY DATA: CBC of the patient yesterday on admission 07/07/2017 was noted essentially normal except eosinophils minimally elevated at 0.6. Lactic acid 2.4. CMP on 07/06/2017 shows BUN normal, creatinine was normal. Potassium was 3.2. PT and PTT for the patient were noted normal yesterday as well. Lactic acid was noted variable at 3.5-1.9 later on yesterday. The troponin for patient remains normal yesterday and this morning. Arterial blood gases of the patient last evening 6 liters, pH of 7.40, pCO2 of 27, pO2 of 122 on 6 L nasal cannula. CMP on 07/07/2017; WBC count 13.1, hemoglobin 11.6, hematocrit 35.5, platelet count 329,000. CMP of the patient of 07/07/2017 noted glucose 149. BUN and creatinine was normal. TSH was 0.270. Review of the radiology data; the chest x-ray of the patient that was done on admission on 07/06/2017; 2-view which was taken was personally reviewed and it does not show any acute visible pulmonary infiltration. V/Q scan was also done yesterday and was noted as no abnormal perfusion defects. CT scan of the chest that was done yesterday as well without contrast does not show any pulmonary infiltration or other abnormalities. Chest x-ray which was done again last night remains negative for any acute infiltration. IMPRESSION: 1. The patient currently admitted to the hospital with acute exacerbation of bronchial asthma with acute bronchitis, which could be most likely considered viral or atypical in origin. 2. Excessive irritation of the airways resulting in recurrent croupy cough as well. 3. History of moderate obesity and past hospitalization, respiratory failure and other illnesses. 4. Sinus tachycardia secondary to current acute exacerbation of bronchial asthma should resolve along with improvement in the bronchial asthma exacerbation. PLAN AND RECOMMENDATIONS: The patient has been getting Solu-Medrol at 60 mg hours, which will be decreased after the next 24 hours off the high dose. The patient was started on the Mucinex 1200 mg b.i.d. She was also started on Robitussin with hydrocodone to manage the symptomatic cough which was noted to be severe. Continue current medication Zithromax for atypical infection. Obtain the respiratory viral cultures as well as the assessment for the patient's whooping cough. Continue oxygen supplementation, maintain saturation 90% or greater. Also, continue medical management. DVT prophylaxis. Other supportive therapy, plan and management and care to be continued. She is currently getting Xarelto 20 mg daily chronic anticoagulation. Would not require any additional medications for DVT prophylaxis. They should continue to give the DVT prophylaxis. Supportive care therapy, plan of management, and other care per usual treatment. Thanks for allowing me to participate in the care of this patient. [place], [place] REPORT OF CONSULTATION NAME: SHERITA PATEL UNIT #: [id number] ROOM: 504 DOCTOR: SHIRLEY ESTRADA MD,MAXINE BIRTHDATE: [birth year] MAXINE WATSON MD CM:CONSTR:REPORT OF CONSULTATION 1111 07/08/17 0135 interface
--- NOTE | ~2017-07-06 | WRIGHTHP ---
[place], [place] PATIENT HISTORY AND PHYSICAL EXAM NAME: SHERITA PATEL UNIT #: [id number] ROOM: 504 DOCTOR: EDDIE EWING DO BIRTHDATE: [birth year] DOS: 07/07/2017 CHIEF COMPLAINT: Shortness of breath. HISTORY OF PRESENT ILLNESS: This note is for Dr. Watson, which was consulted by the hospitalist service for asthma, pneumonitis. The patient is a 42-year-old female who presented to [facility] for shortness of breath that began on last week. The patient states that it has been worsening since . She went to her primary care doctor, who prescribed her and she was using nebulizer every 4 hours at home. Despite of that, she experienced worsening of her symptoms. She reports having pneumonia twice last year and was worried that she is getting pneumonia again. She has a history of asthma and had previous intubation secondary to asthma attack. She states that she may have had low-grade fever and she is having coughing with yellow sputum, change in voice, some chest pain and chills. The patient denies any other complaints. Pulmonary consulted for asthma, pneumonitis. PAST MEDICAL HISTORY: 1. Asthma. 2. IBS. 3. Migraine. 4. Obesity. 5. Pulmonary embolus. 6. Vitamin D deficiency. PAST SURGICAL HISTORY: 1. History of cholecystectomy. 2. History of hysterectomy. SOCIAL HISTORY: 1. The patient used to be former smoker, history of 15-pack years of smoking and quit in February 2017. 2. The patient denies any alcohol or drug use. FAMILY HISTORY: 1. Mother has history of renal failure. 2. Brother has history of lung disease and is diseased. ALLERGIES: BEE ALLERGY, IV DYE, PENICILLIN ALLERGY, CODEINE ALLERGY IBUPROFEN ALLERGY. HOME MEDICATIONS: Vitamin D 3000 International Units daily, Lasix 20 mg p.o. daily and DuoNeb 3 mL every 4 hours and Xarelto. REVIEW OF SYSTEMS: GENERAL: Reports fever. No weight gain or weight loss. HEENT: No vision changes. Denies hearing loss. Denies nasal discharge, ear discharge, ear pain, blurred vision, eye pain, tearing, mouth pain, nose congestion, nose pain or throat pain. CARDIOVASCULAR: Reports chest pain, no palpitation. Denies lower extremity [place], [place] PATIENT HISTORY AND PHYSICAL EXAM NAME: SHERITA PATEL UNIT #: [id number] ROOM: 504 DOCTOR: EDDIE EWING DO BIRTHDATE: [birth year] edema. Denies diaphoresis. RESPIRATORY: Reports shortness of breath, reports cough, reports dyspnea on exertion, reports nocturnal dyspnea. Denies hemoptysis, denies wheezing, denies sputum production. ABDOMINAL: Denies abdominal pain. . GENITOURINARY: Denies dysuria, increase or decrease in frequency. NEUROLOGIC: Denies lightheadedness, dizziness, confusion. PSYCHIATRIC: Denies depression, anxiety, substance abuse. ENDOCRINE: Denies polydipsia, heat intolerance, cold intolerance. SKIN: Denies new rashes, lesions or ulcers. PHYSICAL EXAMINATION: VITAL SIGNS: Temperature 97.6, pulse 127, respiratory rate 22, blood pressure of 140/86, pulse ox of 93 on 4 liters of nasal cannula. GENERAL APPEARANCE: The patient appears alert, awake, responsive, cooperative, in moderate distress secondary to cough. HEAD: Normocephalic, atraumatic. EYES: No lesion, ulceration. Nonicteric. No drainage. ENT: No lesion, no scars. Nasal mucosa moist. Nares patent. Oral mucosa moist. Turbinates are pink, sputum. Midline uvula non-deviated. No pharyngeal exudate or edema. NECK: Without lesions, without masses. Trachea midline, nonenlarged and thyroid nontender. HEART: No gallop, no murmur. Tachycardia. Carotids free of bruit. No lower extremity edema. LUNGS: Dyspnea on exertion, shortness of breath, cough, accessory muscle use. Lung sounds; no rales, no rhonchi, no wheezing, no stridor, clear, diminished at the bases. ABDOMEN: Soft, nontender, nondistended, positive bowel sounds. No splenomegaly or hernias. No guarding, no rigidity, no abdominal pain. EXTREMITIES: No clubbing, no cyanosis, no erythema, no edema. NEUROLOGIC: Grossly intact. Good historian. Fair judgment and insight. SKIN: Warm, dry, no rashes, no lesions, no ulceration, no nodules, no ecchymosis. LABORATORY DATA: White cell count of 13.1, hemoglobin of 11.6, platelet of 329. Sodium of 141, potassium of 4.3, BUN of 14, creatinine of 1.01 and glucose of 149, hemoglobin of 5.7, magnesium of 2.9. Blood gas; pH of 7.4, pCO2 of 27, pO2 of 122. Serology of influenza virus per test is pending. MICROBIOLOGY: Blood cultures are pending to date. IMAGING: Chest x-ray done on 07/06/2017 was negative for acute airspace consolidation. V/Q scan of the lung did not show any evidence of pulmonary embolism. Chest CT did not show acute process, unchanged from prior. Neck soft tissue CT did not show any solid or cystic neck mass, biapical pleural thickening and scarring. Chest x-ray done on 07/06/2017 showed normal AP chest. ASSESSMENT AND PLAN: Please refer to Dr. Watson's note for further impression and plan of treatment. We have ordered hydrocodone syrup and viral cultures for RSV [place], [place] PATIENT HISTORY AND PHYSICAL EXAM NAME: SHERITA PATEL UNIT #: [id number] ROOM: [facility] DOCTOR: EDDIE EWING DO BIRTHDATE: [birth year] whooping cough. Further assessment and plan will be in Dr. Watson's note. Thank you for your consult. EDDIE EWING DO MAXINE WATSON MD CM:HISPHYS:PATIENT HISTORY AND PHYSICAL EXAMINATION 1000 [id number] EDDIE EWING DO 07/08/17 0707 interface
--- NOTE | ~2017-07-06 | EKG ---
[place], [place] ELECTROCARDIOGRAM REPORT NAME: SHERITA PATEL UNIT #: [id number] ROOM: [facility] DOCTOR: SHIRLEY ESTRADA MD,MAXINE BIRTHDATE: [birth year] DOS: 07/06/2017 Electrocardiogram shows normal sinus rhythm with heart rate of 89 beats per minute with ____ chest leads for this patient without any other abnormalities. MAXINE WATSON MD CM:EKGRPT:ELECTROCARDIOGRAM REPORT 1125 1143 MAXINE ESTRADA MD
--- NOTE | ~2017-07-06 | PR ---
[place], [place] PROGRESS NOTE NAME: SHERITA PATEL UNIT #: [id number] ROOM: 504 DOCTOR: SHIRLEY ESTRADA MD,MAXINE BIRTHDATE: [birth year] DOS: 07/12/2017 SUBJECTIVE: She has been noted comfortable at this time, still noted with the hoarseness which was only partially improved. The coughing has been noted intermittently by overall frequency and intensity was improving. Generalized weakness and fatigue was still noted. OBJECTIVE: VITAL SIGNS: Show the temperature noted normal, respiratory rate 18, heart rate 73, blood pressure 108/51. Intake for the patient was 1200 mL, the output 1800 mL. Pulse oxygen saturation on 4 liters nasal cannula 95% saturation recorded. HEENT: Shows no acute change. NECK: Supple. CARDIOVASCULAR: S1, S2 audible. LUNGS: Show [id number] decreased breath sounds noted in the lungs bilaterally. ABDOMEN: Soft, nontender. EXTREMITIES: Show no acute edema. DIAGNOSTIC AND LABORATORY DATA: The culture of the bronchial washing which were done with bronchoscopy, at this time was noted as final results of moderate growth of yeast. The BMP that was done this morning shows glucose 111, BUN 22, creatinine 0.79. All the other electrolytes were normal. The CBC of the patient that was done this morning show WBC count of 13,000, hemoglobin 12.0, hematocrit 37.3, platelet count of 304,000 that was normal. The chest x-ray of the patient that was done was reviewed and assessed personally. The images of the patient reviewed shows a significant reduction and improvement in the areas of atelectasis in the right lower lobe, which were noted previously. Left lung was noted clear. Small area of atelectasis still noted in the medial subsegment of the right lower lung. IMPRESSION: The patient has been currently noted with resolving acute exacerbation of asthmatic bronchitis with acute tracheobronchitis and atelectasis of the right lower lobe, still noted with severe debility and muscle deconditioning. PLAN OF MANAGEMENT: She was started on physical therapy and occupation therapy, dose of Solu-Medrol was further decreased to 40 mg daily. Antibiotic was switched to the oral Zithromax. Continuation of bronchodilators as previously and cough medications as well. Monitor labs for the patient closely. Other supportive plan of therapy and care management. Additional change in treatment will be done based on progression of the illness. Discharge planning could be started through the Cancer Program Coordinator for potential discharge. [place], [place] PROGRESS NOTE NAME: SHERITA PATEL UNIT #: [id number] ROOM: 504 DOCTOR: MAXINE ENRIQUEZ MD BIRTHDATE: [birth year] MAXINE WATSON MD CM:PNTRANS [id number] [id number] MAXINE ESTRADA MD 07/13/17 1058 interface
--- NOTE | ~2017-07-06 | PR ---
[place], [place] PROGRESS NOTE NAME: SHERITA PATEL UNIT #: [id number] ROOM: 504 DOCTOR: EDDIE EWING DO BIRTHDATE: [birth year] DOS: 07/10/2017 SUBJECTIVE: The patient was seen and evaluated in the surgical suite this morning with Dr. Watson. The patient had bronchoscopy done this morning with Dr. Watson, which showed mucus plugs. OBJECTIVE: VITAL SIGNS: Temperature 97, pulse 86, respiratory rate 16, blood pressure 145/76, bedside pulse ox 95% on 15 liters oxygen. HEENT: Shows no changes. NECK: Supple. CARDIOVASCULAR: S1, S2 audible. LUNGS: Diminished at the bases. No rales, rhonchi or wheezing noted. ABDOMEN: Soft, nontender. EXTREMITIES: No clubbing, erythema or edema noted. SKIN: Warm and dry. LABORATORY DATA: White cell count of 11.5, hemoglobin 11.3, platelet count 300. Sodium 140, BUN 21, creatinine 0.97. Chest x-ray done on 07/09/2017 shows elevation of right hemidiaphragm and right basilar airspace opacity. Findings may be due to atelectasis versus pneumonia. ASSESSMENT: 1. Acute tracheobronchitis, viral versus bacterial currently treated with antibiotics. 2. Acute asthmatic bronchitis secondary to acute severe bronchitis. 3. Severe nonproductive cough. PLAN OF MANAGEMENT: 1. Continue with Solu-Medrol. 2. Continue Robitussin with hydrocodone. 3. Continue Zithromax. 4. Await viral culture. 5. Maintain oxygen saturation above 92. 6. Supportive care. EDDIE EWING DO [place], [place] PROGRESS NOTE NAME: SHERITA PATEL UNIT #: [id number] ROOM: 504 DOCTOR: EDDIE EWING DO BIRTHDATE: [birth year] MAXINE WATSON MD CM:PNTRANS [id number] EDDIE EWING DO 07/10/17 0858 interface
--- NOTE | ~2017-07-06 | PR ---
[place], [place] PROGRESS NOTE NAME: SHERITA PATEL UNIT #: [id number] ROOM: 504 DOCTOR: GILDARDO DARBYEDDIE BIRTHDATE: [birth year] DOS: 07/09/2017 SUBJECTIVE: The patient was seen and evaluated today with Dr. Watson. The patient is alert, awake and responsive. The patient denies any nausea, vomiting, diarrhea, lightheadedness, shortness of breath or chest pain. The patient states that her breathing has improved since yesterday. OBJECTIVE: VITAL SIGNS: Temperature 97.9, pulse 92, respiratory rate 18, blood pressure 126/64, bedside pulse of 91 on 4 liters of nasal cannula humidified. GENERAL: The patient is awake, alert, in no distress. HEENT: Shows no changes. NECK: Supple. CARDIOVASCULAR: S1, S2 audible. Tachycardia. LUNGS: Shortness of breath improved, diminished at the bases. No rales, rhonchi or wheezing noted. ABDOMEN: No abdominal tenderness. Positive bowel sounds. EXTREMITIES: No clubbing, no erythema, no edema. SKIN: Warm and dry. LABORATORY DATA: White cell count of 16.4, hemoglobin 12.4, platelet 381. Sodium is 139, potassium 3.9, BUN 17, creatinine 1.15. ASSESSMENT: 1. Viral syndrome versus atypical infection. 2. Acute tracheobronchitis, acute laryngitis. 3. Severe nonproductive cough. 4. Exacerbation of bronchial asthma. PLAN OF TREATMENT: 1. Continue Solu-Medrol 40 b.i.d. Continue Robitussin with hydrocodone. Continue Zithromax. 2. Await viral culture. 3. Maintain oxygen saturation above 90. 4. Supportive care. ADDENDUM DR. MAXINE WATSON 07/09/17 1336: PLAN OF TREATMENT: The patient has a chest x-ray ordered because of hypoxia, noted on oxygen supplementation. The chest x-ray shows evidence of right lower lobe subsegmental atelectasis, most likely secondary to mucous impaction. She was suggested fibrobronchoscopy and agreed by the patient was planned to be done tomorrow morning. The patient was also encouraged to use the BiPAP and the patient agreed to use the BiPAP, which had been refused by the patient previously. The BiPAP was continued with previous settings for the patient most of the time as tolerated. No other additional change in treatment needs to be done. [place], [place] PROGRESS NOTE NAME: SHERITA PATEL UNIT #: [id number] ROOM: 504 DOCTOR: EDDIE EWING DO BIRTHDATE: [birth year] EDDIE EWING DO MAXINE WATSON MD CM:PRAMOD [id number] EDDIE EWING DO 07/09/17 1538 interface
--- NOTE | ~2017-07-06 | PR ---
[place], [place] PROGRESS NOTE NAME: SHERITA PATEL UNIT #: [id number] ROOM: 504 DOCTOR: SHIRLEY ESTRADA MDMAXINE BIRTHDATE: [birth year] DOS: 07/10/2017 The patient was independently seen and examined with [id number] encounter. Physical examination was performed and the history was confirmed. The assessment for this patient and recommendation of any changes were personally made for today's visit. The note which was done by the medical administrative was approved. SUBJECTIVE: The patient has been still noted with severe coughing. She is able to use the BiPAP that has been used by the patient intermittently for several hours. She was planned for bronchoscopy done today. The patient has not been noted any ongoing acute complaints at the present time otherwise. She denies symptoms of hemoptysis. Currently noted n.p.o. past midnight for the procedure. OBJECTIVE: VITAL SIGNS: Shows a normal temperature with the respiratory rate of 14, heart rate 55, blood pressure 131/78. The pulse oxygen saturation was noted as 92% - 95% for this patient with oxygen supplementation via nasal cannula. The patient on 4 liters and 45% oxygen, BiPAP use. HEENT AND GENERAL: Exam is noted with chronic obesity. NECK: Supple. CARDIOVASCULAR: S1, S2 audible. LUNGS: Noted with general reduction in the breath sounds bilaterally. ABDOMEN: Soft and obese. EXTREMITIES: Shows no edema. LABORATORY DATA: BMP today was noted as normal. The CMP of the patient that was done this morning showed WBC count 11.5, hemoglobin 11.3, hematocrit 35.2, platelet count 300. The respiratory viral limited panel for the patient noted negative for a total of 11 virus, which has been assessed from the nasopharyngeal swab. The pertussis IgM antibody was noted as negative. IMPRESSION: 1. The patient with acute hypoxic respiratory failure with ongoing acute asthmatic bronchitis. 2. Atelectasis in the patient secondary to mucous infection of the endobronchial tree and the right lower lobe. 3. The patient with chronic obesity as well. PLAN OF TREATMENT: The patient would be continuing the current plan of management at this time and proceed with bronchoscopy as planned. Any change in treatment if necessary will be done after bronchoscopy. Continue with the BIPAP of patient to stabilize the respiratory status. Usual care, other supportive therapy, plan of management and care plan. The note which was done by the medical administrative was approved as well. [place], [place] PROGRESS NOTE NAME: SHERITA PATEL UNIT #: [id number] ROOM: [facility] DOCTOR: MAXINE ENRIQUEZ MD BIRTHDATE: [birth year] MAXINE WATSON MD CM:PRAMOD [id number] [id number] MAXINE ESTRADA MD 07/10/17 1558 interface
--- NOTE | ~2017-07-06 | PROC NOTE ---
[place], [place] PROCEDURE NOTE NAME: SHERITA PATEL UNIT #: [id number] ROOM: 504 DOCTOR: SHIRLEY ESTRADA MD,MAXINE BIRTHDATE: [birth year] DOS: 07/10/2017 PREOPERATIVE DIAGNOSES: Atelectasis of the right lower lobe with severe nonresolving coughing, mucus impacted with ongoing tracheobronchitis and hypoxic respiratory failure. POSTOPERATIVE DIAGNOSES: Removal of thick plugs and mucus from the endobronchial tree bilaterally. PROCEDURE DESCRIPTION: Informed consent obtained from the patient. The patient was brought to the OR. Placed in supine position. Conscious sedation administered by the Anesthesia Department. After achieving appropriate sedation, airway introduced into the mouth. Bronchoscope advanced to the airway into laryngeal area. Epiglottis and vocal cords were seen. Vocal cords moving symmetrically with movements. Bronchoscope advanced to the vocal cords into the tracheal lumen. The tracheal lumen was noted with moderate amount of mucoid secretion suctioned out. Marie was noted sharp. The patient noted thick plugs of the mucus, which were causing impaction endobronchial tree subsegments including the right lower lobe bronchus. All secretions suctioned out. No endobronchial obstructive lesions were noted. Procedure was well tolerated by the patient without any difficulty. Postoperative findings will be discussed with the patient once the patient recovers the effects of acute sedation. There were no family members available. The patient at this time to discuss the current findings. MAXINE WATSON MD CM:PROCNOTE:PROCEDURE NOTE [id number] MAXINE ESTRADA MD
--- NOTE | ~2017-07-06 | PR ---
[place], [place] PROGRESS NOTE NAME: SHERITA PATEL UNIT #: [id number] ROOM: 504 DOCTOR: EDDIE EWING DO BIRTHDATE: [birth year] DOS: 07/08/2017 SUBJECTIVE: The patient was seen and evaluated today with Dr. Watson. The patient is awake, alert and responsive. The patient denies any nausea, vomiting, diarrhea, lightheadedness or chest pain. The patient complains of mild shortness of breath and palpitation. The patient states that albuterol and the cough syrup is helping. OBJECTIVE: VITAL SIGNS: Temperature 98.3, pulse of 101, blood pressure 108/72, respiratory rate 20, pulse ox is 92% on nasal cannula 4 L. GENERAL APPEARANCE: The patient is awake, alert, no distress. HEENT: Showed no change. NECK: Supple. CARDIOVASCULAR: S1, S2 audible. Tachycardia. LUNGS: Short of breath, cough, dyspnea on exertion, diminished at the bases, no rales, rhonchi or wheezing noted. ABDOMEN: No abdominal tenderness or guarding. Positive bowel sounds. EXTREMITIES: No clubbing, no erythema, no edema. SKIN: Warm and dry. LABORATORY DATA: Sodium 142, potassium 4.1, carbon dioxide of 22, BUN of 14, creatinine of 1.07, white cell count of 18.3, hemoglobin of 11.8, platelet count of 344. IMAGING: Chest x-ray done on 07/06/2017 showed normal chest x-ray. ASSESSMENT: 1. Acute exacerbation of bronchial asthma with acute bronchitis, possibly viral origin. 2. Excessive irritation of the airways resulting in recurrent productive cough. 3. Morbid obesity. 4. Chronic respiratory failure. 5. Sinus tachycardia secondary to the exacerbation of bronchial asthma, in the bronchial asthma exacerbation. PLAN AND RECOMMENDATION: 1. Continue Solu-Medrol 40 b.i.d. 2. Continue Robitussin with hydrocodone. 3. Continue Zithromax. 4. Await viral culture. 5. Maintain oxygen saturation above 90. 6. Supportive care. EDDIE EWING DO [place], [place] PROGRESS NOTE NAME: SHERITA PATEL UNIT #: [id number] ROOM: [facility] DOCTOR: EDDIE EWING DO BIRTHDATE: [birth year] MAXINE WATSON MD CM:PNTRANS [id number] EDDIE EWING DO 07/08/17 1441 interface
--- NOTE | ~2017-07-06 | PR ---
[place], [place] PROGRESS NOTE NAME: SHERITA PATEL UNIT #: [id number] ROOM: 504 DOCTOR: SHIRLEY ESTRADA MD,MAXINE BIRTHDATE: [birth year] DOS: 07/13/2017 SUBJECTIVE: She has been still noted with coughing, which has been gradually improving. Overall debility was noted with very slow improvement. She has been ordered physical therapy and occupation therapy yesterday. OBJECTIVE: VITAL SIGNS: For the patient which has been recorded showed the temperature normal, respiratory rate 20, heart rate 75, blood pressure 114/57. Pulse oxygen saturation recorded as 95% saturation. HEENT: Examination shows no new change. CARDIOVASCULAR: S1, S2 audible. LUNGS: Noted without any wheeze or crackles. ABDOMEN: Soft, nontender. LABORATORY DATA: CBC today: WBC count 15.5. Mild anemia noted, otherwise normal CBC. Acid fast smear was noted negative, pending cultures. Fungal stain noted negative with pending cultures. IMPRESSION: The patient who has been noted with gradual reduction and improvement in the respiratory status, resolving atelectasis of right lower lobe with severe debility, acute tracheobronchitis with asthmatic bronchitis. Muscle deconditioning and current overall weakness secondary to current acute infection. PLAN OF MANAGEMENT: Discharge the patient home on tapering prednisone and antibiotic. Home health, physical therapy and occupation therapy if agreeable by the hospitalist services. Outpatient followup suggested post discharge. MAXINE WATSON MD CM:PNTRANS [phone] MAXINE ESTRADA MD 07/14/17 09 interface
--- NOTE | ~2017-07-06 | PR ---
[place], [place] PROGRESS NOTE NAME: SHERITA PATEL UNIT #: [id number] ROOM: 504 DOCTOR: SHIRLEY ESTRADA MD,MAXINE BIRTHDATE: [birth year] DOS: 07/09/2017 SUBJECTIVE: She has been still noted coughing which was noted nonproductive with some croupy. The patient denies any symptoms of chest pain. There were no wheezing described. She was complaining of generalized weakness and fatigue. The patient was independently seen and examined with [id number] encounter. The physical examination performed. The labs were reviewed. Any change in the treatment and management was personally done for today's visit. The note which was done by the clinical medical assistant was approved as well. OBJECTIVE: VITAL SIGNS: Shows normal temperature, respirations 18, heart rate 92, blood pressure 126/64. Intake for the patient 840, output 1550 mL. The pulse oxygen saturation on 4 liters nasal cannula was 92-93% saturation. HEENT: Examination shows no acute change. NECK: Supple. CARDIOVASCULAR: S1, S2 audible. LUNGS: Shows scattered wheezing with moderate decreased breath sounds bilaterally. ABDOMEN: Soft, nontender. LABORATORY DATA: BMP: BUN 17, creatinine was normal. CBC: WBC count 16.4. The remaining CBC was normal. IMPRESSION: 1. The patient who has been currently noted with acute tracheobronchitis, may be viral or bacterial in origin. Currently treated with antibiotics. 2. Acute asthmatic bronchitis secondary to acute severe bronchitis. PLAN OF MANAGEMENT: Continuation of current antibiotics based on the culture results. The respiratory viral panel results were pending. Continuation of bronchodilators. Obtain the chest x-ray of the patient to assess for interval development of any additional problem on the chest x-ray. The assessment and management has been discussed with the patient's about his concerns about the patient's slow improvement or as per him no improvement. The recovery of this condition seemed to be very slower and is going to remain slower. He has been explained about that. He has also been told if he is not satisfied with care for this patient, he could certainly wish to transfer the patient to another facility of his choice. At this time, no other additional changes in treatment will be recommended. [place], [place] PROGRESS NOTE NAME: SHERITA PATEL UNIT #: [id number] ROOM: [facility] DOCTOR: MAXINE ENRIQUEZ MD BIRTHDATE: [birth year] MAXINE WATSON MD CM:PNTRANS [id number] MAXINE ESTRADA MD 07/09/171820 interface
--- NOTE | ~2017-07-06 | EKG ---
[place], [place] ELECTROCARDIOGRAM REPORT NAME: SHERITA PATEL UNIT #: [id number] ROOM: 504 DOCTOR: SHIRLEY ESTRADA MD,MAXINE BIRTHDATE: [birth year] DOS: 07/06/2017 ELECTROCARDIOGRAM TIME: 2100 hours and 49 minutes. Electrocardiogram shows evidence of severe sinus tachycardia for the patient with heart rate of 154 beats per minute. PVC for the patient was noted. Nonspecific ST-T changes were noticed. MAXINE WATSON MD CM:EKGRPT:ELECTROCARDIOGRAM REPORT [id number] MAXINE ESTRADA MD
--- NOTE | ~2017-07-06 | PR ---
[place], [place] PROGRESS NOTE NAME: SHERITA PATEL UNIT #: [id number] ROOM: 504 DOCTOR: SHIRLEY ESTRADA MD,MAXINE BIRTHDATE: [birth year] DOS: 07/08/2017 PULMONARY PROGRESS NOTE SUBJECTIVE: The patient was independently seen with [id number] encounter. Physical examination was performed. The history and the symptoms were confirmed from the patient. Labs were reviewed. The changes in the medical management and plan for treatment for this patient was personally made for today's visit. The note done by the medical program specialist was approved. The patient has been noted with reduction in symptoms of coughing with current medical management. She was still noted with significant hoarseness. Denies symptoms of chest pain, wheezing, or acute shortness of breath. OBJECTIVE: Currently, comfortably resting on the bed. Auscultation of the chest was noted clear. The vital signs were essentially noted within normal limits. LABORATORY DATA: CMP, which was done today noted with glucose mildly elevated at 157. Remaining CMP was grossly normal. CBC: WBC count 18.3, hemoglobin 11.8, hematocrit 36.7, and platelet count 90%. IMPRESSION: Viral syndrome versus atypical infection, acute tracheobronchitis, acute laryngitis, severe nonproductive cough, and exacerbation of bronchial asthma. PLAN OF TREATMENT: The patient will be recommended to reduce the dose of Solu-Medrol 40 mg b.i.d. Continue the previous treatment as planned. Monitor culture results. Other supportive therapy, plan of management. Respiratory viral assessment was also ordered for this patient, the results are pending. MAXINE WATSON MD CM:PNTRANS [id number] MAXINE ESTRADA MD 07/09/17 0248 interface
[~2017-07-06 08:23] MED LIST changes: +LASIX20 MG PO
[2017-07-06 08:35] VITALS: BP 130/77
[2017-07-06 09:06] LABS: BASO # 0.1 10*3/uL (0.0-0.1); BASO % 0.6 % (0.0-1.0); EOS # 0.1 10*3/uL (0.0-0.4); EOS % 0.6 % (1.0-4.0); LYMPH # 4.4 10*3/uL (1.3-4.4); LYMPH % 43.2 % (27.0-41.0); MEAN CELL VOLUME 83.9 fl (81.0-99.0); MEAN CORPUSCULAR HGB 27.3 pg (27.0-31.0); MEAN CORPUSCULAR HGB CONC 32.5 g/dl (33.0-37.0); MEAN PLATELET VOLUME 9.4 fl (9.6-12.3); MONO # 0.7 10*3/uL (0.1-1.0); MONO % 6.8 % (3.0-9.0); NEUT # 4.9 10*3/uL (2.3-7.9); NEUT % 48.4 % (47.0-73.0); PLATELET COUNT AUTOMATED 342 10*3/uL (130-400); RED BLOOD COUNT 4.77 10*6/uL (4.10-5.10); RED CELL DISTRI WIDTH 13.9 % (0-14.5); WHITE BLOOD COUNT 10.1 10*3/uL (4.8-10.8)
[2017-07-06 09:23] LABS: ALBUMIN 3.9 gm/dl (3.1-4.5); ALKALINE PHOSPHATASE 87 U/L (45-117); BUN 20 mg/dl (7-24); CHLORIDE 107 mmol/L (98-107); CKMB 0.8 ng/ml (0.5-3.6); CPK 58 U/L (26-192); CREATININE 1.07 mg/dL (0.55-1.02); LIPASE 106 U/L (73-393); MAGNESIUM 2.7 mg/dL (1.5-2.1); POTASSIUM 3.2 mmol/L (3.5-5.1); SGOT/AST 20 IU/L (3-35); SGPT/ALT 38 U/L (12-78); SODIUM 141 mmol/L (136-145); TOTAL PROTEIN 7.8 gm/dL (6.4-8.2); TROPONIN I < 0.015 ng/ml (<0.045)
[2017-07-06 09:28] LABS: ACT PARTIAL THROMBO TIME 34.5 SECONDS (20.8-31.5); INTERNATIONAL NORM RATIO 1.2 (2.0-3.5)
[2017-07-06 10:14] VITALS: BP 128/70
[2017-07-06 10:55] VITALS: BP 131/62
--- NOTE | 2017-07-06 10:55 | NUR ---
PATIENT ARRIVED TO THE FLOOR VIA CART FROM ER VIA RN. PATIENT WITH COUGH, SHORTNESS OF BREATH. AMBULATORY, MOVED SELF ONTO BED. IV INTACT
--- NOTE | 2017-07-06 10:55 | NUR ---
A 42, admitted to 5E, under the services of ANJELICA Cordova DO with a diagnosis of ASTHMA EXACERBATION, FAILURE OUT PATIENT TREATMENT, TACHYCARDIA. Chief complaint is SHORTNESS OF BREATH. Patient arrived via ambulatory from ER. Monitor applied. Initial assessment completed. Vital signs taken and recorded. ANJELICA CORDOVA DO notified of admission to the unit. Orders received. See assessment for past medical history, medications and allergies. Patient and/or family oriented to unit. [facility] visitation policy reviewed. Clothing/patient valuable form completed. SEAN HERNANDEZ
[2017-07-06 12:00] VITALS: BP 161/63
[2017-07-06] MEDS ORDERED: XARE20MG PO (12:05)
[2017-07-06 16:00] VITALS: BP 142/47
[2017-07-06 20:00] VITALS: BP 121/69
--- NOTE | 2017-07-06 21:30 | NUR ---
WHEN IN TO PT'S ROOM, PT WAS IN BR. PT AMBULATED TO BED AD GUMARO. PT BECAME SOB W/AUDIBLE WHEEZING NOTED. HARSH NON PRODUCTIVE COUGH NOTED. PT C/O CHEST HEAVINESS. RESIDENTIAL FIELD MANAGER CALLED AT THIS TIME.
--- NOTE | 2017-07-06 21:34 | NUR ---
DR. BRITT AND NUMEROUS STAFF AT BEDSIDE FOR CORDAGE SALES REPRESENTATIVE. O2 VIA 6L SIMPLE MASK APPLIED. NSS BOLUS INFUSING. EKG OBTAINED. MULTIPLE AEROSOL TXS GIVEN. PORTABLE CXR OBTAINED. DR. LOPEZ AT BEDSIDE. ABG'S OBTAINED. VANNESAIZ CONSULT ORDERED. PT TO BE TRANSFERRED TO ICU AT THIS TIME.
--- NOTE | 2017-07-06 22:00 | NUR ---
PT TRANSFERED TO ICU AT THIS TIME. REPORT GIVEN TO ICU NURSE OSMEL.
[2017-07-06 22:12] LABS: ABG HCO3 16.8 mmol/l (22-26); ABG O2 SATURATION 98.4 % (95-97); ARTERIAL BLOOD GAS PCO2 27.1 mmHg (35-45); ARTERIAL BLOOD GAS PH 7.409 (7.35-7.45)
[2017-07-06 22:13] LABS: ABG BASE EXCESS -6.2 mmol/L (-2.0-2.0)
--- NOTE | 2017-07-06 22:20 | NUR ---
PT. RECEIVED FROM 5E BY OSMEL PAUL, REPORT FROM KANU Munguia RN. DR. LOPEZ AT BEDSIDE. VITAL SIGNS 98.5-141-36, 161/63, PULSE OX 95% ON 4L NC. LUNGS DIMINISHED BILAT, WHEEZES ORALLY WITH EXPERATION, NONE HEARD IN LUNGS. ALL BELONGINGS WITH PT. KIET RENDON RN
--- NOTE | 2017-07-06 22:34 | NUR ---
CONTACTED DR. WATSON FOR RAPID RESPONSE PATIENT. BIPAP ORDERED. IF DOESNT HELP, INTUBATE.
--- NOTE | 2017-07-06 22:37 | NUR ---
PT'S NOTIFIED OF PT CONDITION AND TRANSFER TO ICU.
--- NOTE | 2017-07-06 23:34 | NUR ---
PATIENT ASKED FOR SLEEPING PILL PRIOR TO BEING PUT ON BIPAP. RESTORIL WAS GIVEN. WILL MONITOR. AND REASSESS.
[2017-07-07] VITALS: BP 127/60
--- NOTE | 2017-07-07 | NUR ---
PATIENT STRUGGLING WITH BIPAP RESP UP TO 50, PATIENT STATED SHE COULDNT TOLERATE IT. WAS REMOVED, PLACED BACK ON NC 4L. RESP COME DOWN TO 26. WILL CONTINUE TO MONITOR.
--- NOTE | 2017-07-07 00:02 | NUR ---
PT TAKEN OFF BIPAP INCREASED RR NOT TOLERATING
--- NOTE | 2017-07-07 00:30 | NUR ---
PATIENT RESTING, NO DISTRESS NOTED. RESP 12. O2 NC 4L 92%. RESTORIL EFFECTIVE.
--- NOTE | 2017-07-07 03:44 | NUR ---
PATIENT HAS COMPLAINT OF CHEST TIGHTNESS/PAIN FROM COUGHING. CONTACTED DR. BRITT, NEW ORDER FOR LASCASSAS.
--- NOTE | 2017-07-07 03:54 | NUR ---
NORCO GIVEN FOR PAIN/PRESSURE IN CHEST. WILL MONITOR AND REASSESS.
[2017-07-07 04:00] VITALS: BP 145/83
[2017-07-07 04:28] LABS: BASO % 0.1 % (0.0-1.0); HEMATOCRIT 35.5 % (37.0-47.0); HEMOGLOBIN 11.6 g/dl (12.0-16.0); LYMPH # 1.2 10*3/uL (1.3-4.4); LYMPH % 8.8 % (27.0-41.0); MEAN CELL VOLUME 85.7 fl (81.0-99.0); MEAN CORPUSCULAR HGB CONC 32.7 g/dl (33.0-37.0); MEAN PLATELET VOLUME 9.5 fl (9.6-12.3); MONO # 0.1 10*3/uL (0.1-1.0); MONO % 0.7 % (3.0-9.0); NEUT # 11.8 10*3/uL (2.3-7.9); NEUT % 89.8 % (47.0-73.0); PLATELET COUNT AUTOMATED 329 10*3/uL (130-400); RED BLOOD COUNT 4.14 10*6/uL (4.10-5.10); RED CELL DISTRI WIDTH 14.1 % (0-14.5); WHITE BLOOD COUNT 13.1 10*3/uL (4.8-10.8)
[2017-07-07 05:00] LABS: ALBUMIN 3.5 gm/dl (3.1-4.5); ALKALINE PHOSPHATASE 80 U/L (45-117); BUN 14 mg/dl (7-24); CHLORIDE 111 mmol/L (98-107); CHOLESTEROL 182 mg/dL (<200); CREATININE 1.01 mg/dL (0.55-1.02); HDL CHOLESTEROL 63 mg/dl (40-60); LDL CHOLESTEROL 108 mg/dL (9-159); MAGNESIUM 2.9 mg/dL (1.5-2.1); PHOSPHOROUS 2.9 mg/dL (2.5-4.9); SGOT/AST 18 IU/L (3-35); SGPT/ALT 36 U/L (12-78); SODIUM 141 mmol/L (136-145); TOTAL PROTEIN 7.3 gm/dL (6.4-8.2); TRIGLYCERIDES 56 mg/dl (<150); VLDL CHOLESTEROL 11 mg/dL (6-40)
[2017-07-07 05:07] LABS: POTASSIUM 4.3 mmol/L (3.5-5.1)
--- NOTE | 2017-07-07 05:07 | NUR ---
NORCO EFFECTIVE FOR PAIN.
--- NOTE | 2017-07-07 07:29 | NUR ---
Shift chart check completed.
--- NOTE | 2017-07-07 07:30 | NUR ---
Supervisor [employer] in to talk to patient. Patient states lives at [address] with HER . There are "FEW STEPS" steps in the home. Physician: NIKOLAS Pharmacy: [facility] Home health services: NONE Patient's level of ADLs: INDEPENDENT Patient has working utilities: YES DME: NEB Follow-up physician's appointment after d/c: WILL BE MADE PRIOR TO DC Does patient want to access PORTAL?: Discharge plan HOME. SHEA KAISER
[2017-07-07 08:00] VITALS: BP 140/86
--- NOTE | 2017-07-07 08:00 | NUR ---
MED REC UPDATED AND XARELTO MED FIXED ON MED REC.
--- NOTE | 2017-07-07 08:46 | NUR ---
PATIENT EXTREMELY TIGHT CROUPY COUGH. TESSALON TOYA GIVEN FOR COUGH ALONG WITH COUGH DROP. PT LIPS CYANOTIC WITH PULSE OX 90% ON NC4L. LUNGS DIM BUT CLEAR IN UPPER LOBES HOWEVER WHEEZE AUDIBLE IN THROAT AREA. HEART RATE LOW 100'S WITH COUGHING. NO EDEMA. BSC TO VOID EARLIER FOR CLEAR STRAW URINE WITH NO C/O BURNING/URGENCY. IV HEP LOCK SECURE X2
--- NOTE | 2017-07-07 09:19 | NUR ---
COUGHING IS LESS SINCE MEDICATED - DR WATSON MADE ROUNDS AND ORDERS RECEIVED AFTER SEEN & EXAMINED.
--- NOTE | 2017-07-07 10:07 | NUR ---
NASAL SWAB SPECIMENS SENT PER ORDERS
[2017-07-07 11:09] LABS: VITAMIN D, 25-HYDROXY 33.6 ng/mL (30-100)
--- NOTE | 2017-07-07 11:47 | NUR ---
HYCODAN GIVEN PER ORDERS AFTER BATHED UP & COUGHING INCREASED. PT NOW UP IN THE CHAIR
--- NOTE | 2017-07-07 11:49 | NUR ---
DR PARKS MADE ROUNDS
[2017-07-07 12:00] VITALS: BP 142/78
--- NOTE | 2017-07-07 14:17 | NUR ---
MOVED TO 504-2 VIA RECLINER CHAIR - FAMILY HERE
[2017-07-07 16:00] VITALS: BP 131/70
--- NOTE | 2017-07-07 17:26 | NUR ---
DR TIRADO HERE TO SEE PATIENT ABOUT CARDIOLOGY CONSULT
[2017-07-07 20:00] VITALS: BP 121/48
--- NOTE | 2017-07-07 21:00 | NUR ---
RESTING IN BED WATCHING TV. HOARSE. RESPIRATIONS EASY. LUNGS DIMINISHED WITH POOR AIR MOVEMENT. PULSE OX 94% 4L, HUMIDIFICATION APPLIED. HARSH, TIGHT NON-PRODUCTIVE COUGH NOTED. AWARE OF NEED FOR SPUTUM SPECIMEN, CUP AT BEDSIDE. GENERALIZED EDEMA VS OBESITY. TEDS APPLIED PER ORDER. CALL LIGHT WITHIN REACH. NO VOICED COMPLAINTS
--- NOTE | 2017-07-07 22:14 | NUR ---
MEDICATED WITH NORCO PER PRN ORDER FOR COMPLAINTS OF CHEST DISCOMFORT D/T COUGH. ALSO PROVIDED WITH HOT TEA. CALL LIGHT WITHIN REACH. WILL MONITOR
[2017-07-08] VITALS: BP 134/80
--- NOTE | 2017-07-08 | NUR ---
EARLIER MEDS APPEAR EFFECTIVE. RESTING WITH EYES CLOSED. RESPIRATIONS EASY. VSS. O2 IN USE. CALL LIGHT WITHIN REACH
--- NOTE | 2017-07-08 05:34 | NUR ---
RESTED THROUGHOUT NIGHT WITH NO ACUTE DISTRESS NOTED. O2 IN USE AT 4L HUMDIFIED. CONTINUES TO HAVE HARSH NON-PRODUCTIVE COUGH. REQUESTED AND RECEIVED NORCO PER PRN ORDER TO ASSIST WITH CHEST DISCOMFORT D/T COUGH. CALL LIGHT WITHIN REACH. WILL MONITOR FOR EFFECTIVENESS
[2017-07-08 06:20] LABS: HEMATOCRIT 36.7 % (37.0-47.0); HEMOGLOBIN 11.8 g/dl (12.0-16.0); MEAN CELL VOLUME 86.8 fl (81.0-99.0); MEAN CORPUSCULAR HGB 27.9 pg (27.0-31.0); MEAN CORPUSCULAR HGB CONC 32.2 g/dl (33.0-37.0); MEAN PLATELET VOLUME 9.6 fl (9.6-12.3); PLATELET COUNT AUTOMATED 344 10*3/uL (130-400); RED BLOOD COUNT 4.23 10*6/uL (4.10-5.10); RED CELL DISTRI WIDTH 14.6 % (0-14.5); WHITE BLOOD COUNT 18.3 10*3/uL (4.8-10.8)
--- NOTE | 2017-07-08 06:20 | NUR ---
EARLIER MEDS APPEAR EFFECTIVE. REMAINS AWAKE. SITTING UP IN BED PLAYING ON PHONE. O2 IN USE. CALL LIGHT WITHIN REACH. NO FURTHER VOICED COMPLAINTS
[2017-07-08 06:35] LABS: ALBUMIN 3.2 gm/dl (3.1-4.5); ALKALINE PHOSPHATASE 83 U/L (45-117); BUN 14 mg/dl (7-24); CHLORIDE 107 mmol/L (98-107); CREATININE 1.07 mg/dL (0.55-1.02); POTASSIUM 4.1 mmol/L (3.5-5.1); SGOT/AST 15 IU/L (3-35); SGPT/ALT 34 U/L (12-78); SODIUM 142 mmol/L (136-145); THYROXINE (T4) TOTAL 8.5 ug/dl (4.8-13.9); TOTAL PROTEIN 7.4 gm/dL (6.4-8.2)
[2017-07-08 07:37] LABS: PLATELET SUFFICIENCY NORMAL (NORMAL); TOTAL CELLS COUNTED 100 #CELLS
[2017-07-08 08:00] VITALS: BP 108/72
[2017-07-08 12:00] VITALS: BP 143/81
--- NOTE | 2017-07-08 12:56 | NUR ---
PATIENT GIVEN PRN NORCO FOR COMPLAINTS OF UPPER CHEST PAIN FROM HARSH COUGH AND HEADACHE WELL THAT SHE BELIEVES TO RELATE TO COUGHING. NO OTHER COMPLAINTS AT THIS TIME. WILL CONTINUE TO MONITOR.
[2017-07-08 16:00] VITALS: BP 122/63
--- NOTE | 2017-07-08 16:39 | NUR ---
DR KAPOOR AND TEAM ROUNDED ,NO NEW ORDERS.
[2017-07-08 20:00] VITALS: BP 141/74
--- NOTE | 2017-07-08 20:30 | NUR ---
SITTING IN BED, FACE-TIMING WITH FAMILY. NO ACUTE DISTRESS NOTED. O2 IN USE. CALL LIGHT WITHIN REACH. NO VOICED COMPLAINTS
--- NOTE | 2017-07-08 21:37 | NUR ---
REQUESTED AND RECEIVED NORCO PER PRN ORDER FOR COMPLAINTS OF CHEST DISCOMFORT D/T COUGH. CALL LIGHT WITHIN REACH. WILL MONITOR FOR EFFECTIVENESS
--- NOTE | 2017-07-08 23:00 | NUR ---
STATES RELIEF FROM EARLIER NORCO. RESTING MORE COMFORTABLY. CALL LIGHT WITHIN REACH. NO FURTHER VOICED COMPLAINTS
[2017-07-09] VITALS: BP 123/72
--- NOTE | 2017-07-09 00:10 | NUR ---
EARLIER MEDS APPEAR EFFECTIVE. SLEEPING. RESPIRATIONS EASY. VSS. O2 IN USE. CALL LIGHT WITHIN REACH
--- NOTE | 2017-07-09 04:00 | NUR ---
CONTINUES TO SLEEP. O2 IN USE. CALL LIGHT WITHIN REACH
--- NOTE | 2017-07-09 05:20 | NUR ---
AWAKENS, HAVING A COUGHING SPELL. MEDICATED WITH ROUTINE COUGH SYRUP AND PRN LOZENGE. PROVIDED WITH WARM TEA. ALSO MEDICATED WITH NORCO PER PRN ORDER FOR COMPLAINTS OF CHEST DISOMFORT D/T COUGH. WILL MONITOR
--- NOTE | 2017-07-09 05:30 | NUR ---
CONTINUES TO HAVE HARSH HACKY COUGH. STEVE DIETZ PROVIDED
--- NOTE | 2017-07-09 05:45 | NUR ---
RESP PAGED FOR BREATHING TREATMENT, TOO EARLY. DR BRITT CALLED AND UPDATED ON PATIENT CONDITION. DR BRITT COMING TO FLOOR TO ASSESS PATIENT
--- NOTE | 2017-07-09 06:00 | NUR ---
PATIENT ANXIOUS, DYSPNEIC. TIGHT HARSH NON-PROD COUGH. STAT ORDERS RECEIVED. PATIENT MEDICATED WITH MORPHINE, ATIVAN, AND MAG SULFATE - SEE EMAR.
--- NOTE | 2017-07-09 06:30 | NUR ---
DR BRITT LEFT FLOOR
--- NOTE | 2017-07-09 07:00 | NUR ---
MEDS EFFECTIVE. PATIENT RESTING AND BREATHING MORE EASILY. O2 IN USE AT 4L.
[2017-07-09 07:06] LABS: BASO % 0.1 % (0.0-1.0); HEMATOCRIT 37.7 % (37.0-47.0); HEMOGLOBIN 12.4 g/dl (12.0-16.0); LYMPH # 2.1 10*3/uL (1.3-4.4); LYMPH % 12.7 % (27.0-41.0); MEAN CELL VOLUME 85.7 fl (81.0-99.0); MEAN CORPUSCULAR HGB 28.2 pg (27.0-31.0); MEAN CORPUSCULAR HGB CONC 32.9 g/dl (33.0-37.0); MEAN PLATELET VOLUME 9.4 fl (9.6-12.3); MONO # 0.6 10*3/uL (0.1-1.0); MONO % 3.5 % (3.0-9.0); NEUT # 13.4 10*3/uL (2.3-7.9); NEUT % 81.9 % (47.0-73.0); PLATELET COUNT AUTOMATED 381 10*3/uL (130-400); RED CELL DISTRI WIDTH 14.4 % (0-14.5); WHITE BLOOD COUNT 16.4 10*3/uL (4.8-10.8)
[2017-07-09 07:23] LABS: BUN 17 mg/dl (7-24); CHLORIDE 104 mmol/L (98-107); CREATININE 1.15 mg/dL (0.55-1.02); POTASSIUM 3.9 mmol/L (3.5-5.1); SODIUM 139 mmol/L (136-145)
[2017-07-09 08:00] VITALS: BP 126/64
--- NOTE | 2017-07-09 08:50 | NUR ---
DR WATSON ROUNDED, NO NEW ORDERS.
--- NOTE | 2017-07-09 09:22 | NUR ---
RT IN AND PT ON BIPAP, 08/08 @40%. AT BEDSIDE. DR GASPAR ROUNDED, NO NEW ORDERS.PT CALM, NO DISTRESS NOTED. CALL LIGHT IN REACH. AT BEDSIDE. WILL CONTINUE TO MONITOR.
--- NOTE | 2017-07-09 11:55 | NUR ---
ZOFRAN 4 MG GIVEN FOR C/O NAUSEA. BIPAP BACK ON 08/08 @ 40%.
[2017-07-09 12:00] VITALS: BP 124/74
--- NOTE | 2017-07-09 12:38 | NUR ---
NOTIFIED DR WATSON OF CXR RESULTS. HE ADVISED ME TO SPEAK TO PT AND ABOUT A POSSIBLE BRONCH TOMORROW AND OR THURSDAY D/T OR AVAILABILITY.
--- NOTE | 2017-07-09 12:47 | NUR ---
SPOKE TO PT AND REGARDING DR WATSON DOING BRONCH. PT STATED SHE WAS OK WITH DR WATSON'S PLAN OF CARE. NOTIFIED DR WATSON, AWAITING ORDERS.
--- NOTE | 2017-07-09 13:31 | NUR ---
DR WATSON CALLED AND ORDERS RECIEVED FOR BRONCH IN AM.
--- NOTE | 2017-07-09 14:03 | NUR ---
PRN NORCO 5-325 GIVEN TO PT. FOR C/O RIB PAIN. 06/04.
[2017-07-09 16:00] VITALS: BP 113/63
--- NOTE | 2017-07-09 16:15 | NUR ---
Time: 1614 A 69 year old FEMALE admitted to 5E under services of ANJELICA CORDOVA DO. Pt. arrived via stretcher from ER. Chief complaint: CELLULITIS OF WOUND TO RLE. ROLF MULLINS
--- NOTE | 2017-07-09 19:53 | NUR ---
Medicated with Zofran IV prn for nausea. Will monitor effectiveness. Call light within reach.
[2017-07-09 20:00] VITALS: BP 120/56
--- NOTE | 2017-07-09 21:45 | NUR ---
Patient resting quietly in bed with eyes closed. Zofran effective. Will continue to monitor. Call light within reach.
--- NOTE | 2017-07-09 23:35 | NUR ---
MEDICATED WITH ROUTINE COUGH MEDICATION & ALSO MEDICATED WITH NORCO FOR C/O GENERALIZED DISCOMFORT.
[2017-07-10] VITALS (9 sets, daily range): BP systolic 111–145; BP diastolic 56–96
[2017-07-10 00:04] LABS: ADENOVIRUS Negative (Negative); INFLUENZA A Negative (Negative); INFLUENZA B Negative (Negative); METAPNEUMOVIRUS Negative (Negative); PARAINFLUENZA 1 Negative (Negative); PARAINFLUENZA 2 Negative (Negative); PARAINFLUENZA 3 Negative (Negative); RHINOVIRUS Negative (Negative); RSV A Negative (Negative); RSV B Negative (Negative)
--- NOTE | 2017-07-10 02:00 | NUR ---
RESTING IN BED WITH EYES CLOSED; MEDICATIONS GIVEN EARLIER APPARENTLY EFFECTIVE.
--- NOTE | 2017-07-10 06:03 | NUR ---
SURGERY HERE TO TAKE PATIENT DOWN FOR BRONCHOSCOPY. 02 BEING MAINTAINED AT 4LPM VIAN N/C; PULSE OX 94%. PT. VOICES NO C/O. CALL LIGHT WITHIN REACH.
[2017-07-10 06:41] LABS: HEMATOCRIT 35.2 % (37.0-47.0); HEMOGLOBIN 11.3 g/dl (12.0-16.0); MEAN CELL VOLUME 86.9 fl (81.0-99.0); MEAN CORPUSCULAR HGB 27.9 pg (27.0-31.0); MEAN CORPUSCULAR HGB CONC 32.1 g/dl (33.0-37.0); MEAN PLATELET VOLUME 9.8 fl (9.6-12.3); NUCLEATED RED BLOOD CELL 0.2 % (0.0-0.0); PLATELET COUNT AUTOMATED 300 10*3/uL (130-400); RED BLOOD COUNT 4.05 10*6/uL (4.10-5.10); RED CELL DISTRI WIDTH 14.5 % (0-14.5); WHITE BLOOD COUNT 11.5 10*3/uL (4.8-10.8)
[2017-07-10 06:50] LABS: BUN 21 mg/dl (7-24); CHLORIDE 104 mmol/L (98-107); CREATININE 0.97 mg/dL (0.55-1.02); POTASSIUM 4.2 mmol/L (3.5-5.1); SODIUM 140 mmol/L (136-145)
[2017-07-10 07:09] LABS: PLATELET SUFFICIENCY NORMAL (NORMAL); TOTAL CELLS COUNTED 100 #CELLS
--- NOTE | 2017-07-10 08:25 | NUR ---
Shift chart check completed.
--- NOTE | 2017-07-10 08:42 | NUR ---
PT STATES CHEST DISCOMFORT/CHEST TIGHTNESS WHEN BREATHING, 1MG MORPHING GIVEN PER ORDER. PT AWAKE, ALERT. DRY COUGH CONTINUEING. BIPAP ON. 09/04 50% O2. PULSEOX AT THIS TIME 95%. WILL CONTINUE TO MONITOR DR. GASPAR IN ROOM, ROUNDING ON PATIENT.
--- NOTE | 2017-07-10 09:50 | NUR ---
PT STATES MORPHINE SOMEWHAT EFFECTIVE FOR PAIN REMAIN ON BIPAP. PT STATES FEELING SLIGHTLY BETTER, STILL STATES TIGHTNESS IN CHEST
--- NOTE | 2017-07-10 12:22 | NUR ---
RESPIRATORY PLACED PT ON NC 5LITERS. SAO2 92% AT THIS TIME. PT STATES NO NEEDS
--- NOTE | 2017-07-10 14:29 | NUR ---
PT COMPLAINS OF CHEST DISCOMFORT FROM COUGHING, NORCO GIVEN. SEE MAR. WILL MONITOR FOR EFFECTIVENESS
--- NOTE | 2017-07-10 15:59 | NUR ---
PT STATES NORCO SOMEWHAT EFFECTIVE, PT STATES DIFFIULT TO GET COMFORTABLE DO TO COUGH
--- NOTE | 2017-07-10 18:13 | NUR ---
notified dr. greene that pt lost iv access. several nurses attempted a peripherial line and were unsuccessful dr. greene stated to have another nurse try from [facility] with ultrasound machine if they are available. I asked dr. greene if no one is available at this time to try, what should we do in the meantime want me to do and she said to pass it along to the next shift to attempt and if possible have someone from [facility] on next shift attempt with ultrasound machine. dr. greene is aware that pt will be missing doses of solumedrol and azithromycin. dr. greene stated at this time she doesn't think she needs a central line although stated she would benefit from the iv solumedrol through the night.
--- NOTE | 2017-07-10 18:30 | NUR ---
THIRD NURSE ATTEMPTED IV AND WAS SUCCESSFUL. A #24 IV WAS PLACED IN RIGHT HAND. IV IN LEFT WRIST STILL HAS A BLOOD RETURN AND FLUSHES HOWEVER PT STATES HURTS WHEN FLUSHED. IV WAS LEFT IN FOR NOW.
--- NOTE | 2017-07-10 18:31 | NUR ---
PT COMPLAINS OF NAUSEA, ZOFRAN GIVEN
--- NOTE | 2017-07-10 20:00 | NUR ---
SITTING UP IN BED WITH HOB ELEVATED. 02 INTACT AT 5 LITERS. LUNGS DIMINISHED BILATERALLY; PT. HAS A HARSH CROUPY COUGH. NO OVERT DISTRESS NOTED; WILL CONTINUE TO MONITOR. CALL LIGHT WITHIN REACH.
--- NOTE | 2017-07-10 23:38 | NUR ---
MEDICATED WITH NORCO FOR C/O PAIN FROM COUGHING.
[2017-07-11] VITALS: BP 112/61
--- NOTE | 2017-07-11 02:00 | NUR ---
RESTING IN BED WITH EYES CLOSED; PAIN MEDICATION GIVEN EARLIER EFFECTIVE.
[2017-07-11 05:46] LABS: HEMATOCRIT 36.6 % (37.0-47.0); HEMOGLOBIN 11.9 g/dl (12.0-16.0); MEAN CELL VOLUME 86.7 fl (81.0-99.0); MEAN CORPUSCULAR HGB 28.2 pg (27.0-31.0); MEAN CORPUSCULAR HGB CONC 32.5 g/dl (33.0-37.0); MEAN PLATELET VOLUME 9.4 fl (9.6-12.3); NUCLEATED RED BLOOD CELL 0.2 % (0.0-0.0); PLATELET COUNT AUTOMATED 306 10*3/uL (130-400); RED BLOOD COUNT 4.22 10*6/uL (4.10-5.10); RED CELL DISTRI WIDTH 14.2 % (0-14.5); WHITE BLOOD COUNT 9.5 10*3/uL (4.8-10.8)
--- NOTE | 2017-07-11 06:00 | NUR ---
MEDICATED WITH TESSALON PEARLES FOR COUGH.
[2017-07-11 06:31] LABS: TOTAL CELLS COUNTED 100 #CELLS
[2017-07-11 06:35] LABS: PLATELET SUFFICIENCY NORMAL (NORMAL)
[2017-07-11 08:00] VITALS: BP 112/68
--- NOTE | 2017-07-11 08:05 | NUR ---
PT MEDICATED WITH IV ZOFRAN PER PRN ORDER FOR C/O NAUSEA. WILL MONITOR EFFECTIVENESS.
--- NOTE | 2017-07-11 09:30 | NUR ---
EARLIER MEDICATION EFFECTIVE PER PT.
--- NOTE | 2017-07-11 09:53 | NUR ---
IN TO SEE PATIENT.
[2017-07-11 12:00] VITALS: BP 111/54
[2017-07-11 14:11] LABS: ACID FAST SMEAR Negative (.); ACID FAST SPEC PROCESSING Concentration (.)
[2017-07-11 16:00] VITALS: BP 114/55
--- NOTE | 2017-07-11 16:55 | NUR ---
PT GIVEN PO NORCO PER PRN ORDER FOR C/O CHEST DISCOMFORT DUE TO COUGHING. WILL MONITOR EFFECTIVENESS. CALL LIGHT WITHIN REACH.
--- NOTE | 2017-07-11 18:00 | NUR ---
NORCO EFFECTIVE PER PT. WILL CONTINUE TO MONITOR.
[2017-07-11 20:00] VITALS: BP 114/64
--- NOTE | 2017-07-11 22:00 | NUR ---
PT STATES THAT PAIN MED WAS EFFECTIVE FOR PAIN RELIEF. BIPAP ON AT THIS TIME.
--- NOTE | 2017-07-11 23:09 | NUR ---
pt placed on bipap
[2017-07-12] VITALS: BP 113/64
[2017-07-12 06:00] LABS: HEMATOCRIT 37.3 % (37.0-47.0); MEAN CELL VOLUME 86.9 fl (81.0-99.0); MEAN CORPUSCULAR HGB CONC 32.2 g/dl (33.0-37.0); MEAN PLATELET VOLUME 9.4 fl (9.6-12.3); PLATELET COUNT AUTOMATED 304 10*3/uL (130-400); RED BLOOD COUNT 4.29 10*6/uL (4.10-5.10); RED CELL DISTRI WIDTH 14.1 % (0-14.5)
[2017-07-12 06:32] LABS: BUN 22 mg/dl (7-24); CHLORIDE 102 mmol/L (98-107); CREATININE 0.79 mg/dL (0.55-1.02); POTASSIUM 4.3 mmol/L (3.5-5.1); SODIUM 137 mmol/L (136-145)
[2017-07-12 07:19] LABS: PLATELET SUFFICIENCY NORMAL (NORMAL); TOTAL CELLS COUNTED 100 #CELLS
[2017-07-12 08:00] VITALS: BP 126/62
--- NOTE | 2017-07-12 08:55 | NUR ---
ADMINISTERED PO COLACE X 1 ORDERED FOR CONSTIPATION, PRN PO TESSALON PEARLES FOR CONGESTION, AND PO CEPACOL LOZENGE FOR SORE THROAT.
[2017-07-12 12:00] VITALS: BP 108/51
[2017-07-12 16:00] VITALS: BP 118/64
[2017-07-12 20:00] VITALS: BP 127/67
[2017-07-13] VITALS: BP 113/52
--- NOTE | 2017-07-13 02:04 | NUR ---
24 HR chart check completed.
[2017-07-13 04:00] VITALS: BP 114/56
[2017-07-13 06:19] LABS: HEMATOCRIT 35.7 % (37.0-47.0); HEMOGLOBIN 11.6 g/dl (12.0-16.0); MEAN CELL VOLUME 86.9 fl (81.0-99.0); MEAN CORPUSCULAR HGB 28.2 pg (27.0-31.0); MEAN CORPUSCULAR HGB CONC 32.5 g/dl (33.0-37.0); MEAN PLATELET VOLUME 9.3 fl (9.6-12.3); PLATELET COUNT AUTOMATED 258 10*3/uL (130-400); RED BLOOD COUNT 4.11 10*6/uL (4.10-5.10); RED CELL DISTRI WIDTH 14.3 % (0-14.5); WHITE BLOOD COUNT 15.5 10*3/uL (4.8-10.8)
[2017-07-13 06:41] LABS: BUN 24 mg/dl (7-24); CHLORIDE 102 mmol/L (98-107); CREATININE 0.86 mg/dL (0.55-1.02); POTASSIUM 3.7 mmol/L (3.5-5.1); SODIUM 142 mmol/L (136-145)
[2017-07-13 06:55] LABS: TOTAL CELLS COUNTED 100 #CELLS
[2017-07-13 06:57] LABS: PLATELET SUFFICIENCY NORMAL (NORMAL)
--- NOTE | 2017-07-13 07:00 | NUR ---
PATIENT LYING IN BED, SLEPT ALL NIGHT. NO S/S OF DISTRESS.
[2017-07-13 08:00] VITALS: BP 114/57
[2017-07-13] MEDS ORDERED: PREDNISONE10 MG PO (11:37)
[2017-07-13] MEDS ORDERED: DOXYCYCLINE100 M3 PO (11:37)
[2017-07-13] MEDS ORDERED: K-TAB20 MEQ PO (11:42)
--- NOTE | 2017-07-13 13:00 | NUR ---
Discharge instructions reviewed with patient/family. Patient receptive and verbalizes understanding. Follow-up care arranged. Written instructions given to patient/family. SEAN HERNANDEZ
--- NOTE | 2017-07-13 13:25 | NUR ---
1230-ROOMAIR HR 85 BP-129/71 PT SITTING 1234- RA WALKING 94% HR110 1235- RA WALKING 93% HR99 1236- RA WALKING 94% HR100 1237- RA WALKING 95% HR95 1238- RA SITTING 95% HR89 1239- RA WALKING 94% HR92 1240- RA BACK TO BED. PT NEVER DESAT BUT FEELING SHORT OF BREATH BP 135/82
== END 2017-07-13 13:00 | disposition home or self-care (01) | DRG 871 ==
LOC: ED 08:23 → EDHOLD 09:51 → 5E 09:51 → ICCU 09:51 → 5E 10:13 → ICCU 21:50 → 5E 07-07 14:19
PROVIDERS: Emergency Medicine; Hospitalist; Internal Medicine; Internal Medicine Critical Care Medicine; Student in an Organized Health Care Education/Training Program; ADMIT Internal Medicine
PROC: 5A09457 Assistance with Respiratory Ventilation, 24-96 Consecutive Hours, Continuous Positive Airway Pressure (ICD-10-PCS; principal; 2017-07-09)
PROC: 0BC28ZZ Extirpation of Matter from Carina, Via Natural or Artificial Opening Endoscopic (ICD-10-PCS; 2017-07-10)
PROC: 0BC68ZZ Extirpation of Matter from Right Lower Lobe Bronchus, Via Natural or Artificial Opening Endoscopic (ICD-10-PCS; 2017-07-10)
DX: A41.9 Sepsis, unspecified organism (principal); J18.9 Pneumonia, unspecified organism; J96.01 Acute respiratory failure with hypoxia; T17.890A Other foreign object in other parts of respiratory tract causing asphyxiation, initial encounter; J44.0 Chronic obstructive pulmonary disease with (acute) lower respiratory infection; J45.901 Unspecified asthma with (acute) exacerbation; D68.59 Other primary thrombophilia; I50.32 Chronic diastolic (congestive) heart failure; J98.11 Atelectasis; J44.1 Chronic obstructive pulmonary disease with (acute) exacerbation; R65.20 Severe sepsis without septic shock; K21.9 Gastro-esophageal reflux disease without esophagitis; F41.9 Anxiety disorder, unspecified; S29.011A Strain of muscle and tendon of front wall of thorax, initial encounter; X58.XXXA Exposure to other specified factors, initial encounter; E87.6 Hypokalemia; E83.41 Hypermagnesemia; E04.1 Nontoxic single thyroid nodule; G43.909 Migraine, unspecified, not intractable, without status migrainosus; D64.9 Anemia, unspecified; J20.9 Acute bronchitis, unspecified; E66.01 Morbid (severe) obesity due to excess calories; Z99.81 Dependence on supplemental oxygen; Z88.0 Allergy status to penicillin; Z88.5 Allergy status to narcotic agent; Z88.6 Allergy status to analgesic agent; Z91.041 Radiographic dye allergy status; Z82.49 Family history of ischemic heart disease and other diseases of the circulatory system; Z91.030 Bee allergy status; Y93.89 Activity, other specified; Y99.8 Other external cause status; Z79.01 Long term (current) use of anticoagulants; Y92.89 Other specified places as the place of occurrence of the external cause; Z79.899 Other long term (current) drug therapy; Z90.49 Acquired absence of other specified parts of digestive tract; Z90.710 Acquired absence of both cervix and uterus; Z86.711 Personal history of pulmonary embolism; Z87.891 Personal history of nicotine dependence; Z80.1 Family history of malignant neoplasm of trachea, bronchus and lung; Z84.1 Family history of disorders of kidney and ureter; Z78.9 Other specified health status; Z68.33 Body mass index [BMI] 33.0-33.9, adult

== ENCOUNTER 2021-08-15 19:06 | Emergency (ER) | payer SELFPAY ==
[~2021-08-15 19:06] MED LIST changes: +K-TAB20 MEQ PO; +XARE20MG PO
[2021-08-15 19:24] LABS: HEMATOCRIT 38.7 % (37.0-47.0); MEAN CELL VOLUME 78.7 fl (81.0-99.0); MEAN CORPUSCULAR HGB 24.6 pg (27.0-31.0); MEAN CORPUSCULAR HGB CONC 31.3 g/dl (33.0-37.0); MEAN PLATELET VOLUME 9.5 fl (9.6-12.3); PLATELET COUNT AUTOMATED 410 10*3/uL (130-400); RED BLOOD COUNT 4.92 10*6/uL (4.10-5.10); RED CELL DISTRI WIDTH 16.6 % (0-14.5); WHITE BLOOD COUNT 11.5 10*3/uL (4.8-10.8)
[2021-08-15 19:39] LABS: ALBUMIN 3.7 gm/dl (3.1-4.5); ALKALINE PHOSPHATASE 92 U/L (45-117); BUN 17 mg/dl (7-24); CHLORIDE 106 mmol/L (98-107); CREATININE 1.13 mg/dL (0.55-1.02); POTASSIUM 3.8 mmol/L (3.5-5.1); SGOT/AST 19 IU/L (3-35); SGPT/ALT 29 U/L (12-78); SODIUM 141 mmol/L (136-145)
[2021-08-15 19:48] LABS: TOTAL CELLS COUNTED 100 #CELLS
[2021-08-15 19:49] LABS: BURR CELLS FEW; OVALOCYTES FEW; PLATELET SUFFICIENCY HIGH (NORMAL)
[2021-08-15] MEDS ORDERED: PREDNISONE20 M1 PO (21:02)
== END 2021-08-15 23:52 | disposition home or self-care (01) ==
LOC: ED 19:06
PROVIDERS: Internal Medicine
DX: J05.0 Acute obstructive laryngitis [croup] (principal); Z20.822 Contact with and (suspected) exposure to COVID-19; Z88.0 Allergy status to penicillin; Z91.030 Bee allergy status; Z91.041 Radiographic dye allergy status; Z88.6 Allergy status to analgesic agent; Z88.8 Allergy status to other drugs, medicaments and biological substances; Z79.899 Other long term (current) drug therapy; Z87.891 Personal history of nicotine dependence